=== PATIENT | female | born 1985 | race Caucasian/White ===

== ENCOUNTER 2016-10-24 21:36 | Emergency (ER) | payer OTHER ==
[2016-10-24 22:06] VITALS: RESP 16
--- NOTE | 2016-10-25 01:09 | ED ---
General Adult HPI - General Chief complaint: Overdose Stated complaint: overdose Time Seen by Provider: 10/24/16 21:56 Source: patient, EMS Mode of arrival: EMS - History of Present Illness Initial comments: Patient presents via EMS for heroin overdose. Patient was found by her family unresponsive with a needle in her arm this afternoon. EMS was called, patient did not require any Narcan, and said she woke to physical stimulation. In the emergency department, patient states that she is sorry for what she did, she states that she is not suicidal or homicidal at this time. Patient is tearful and feels "stupid" patient states that she has a history of heroin abuse but she has been clean for one year. She states that she was given heroin by a friend of hers and use it today because there is a lot of stress in her life. Patient has no other complaints at this time. - Related Data Home Medications Medication Instructions Recorded Confirmed Gabapentin [Neurontin] 300 mg PO TID 08/16/15 10/24/16 Hydrocodone/Acetaminophen [[place] 1 tab PO TID 08/16/15 10/24/16 10-325] Albuterol Sulfate [Proair Hfa] 1 - 2 puff PO RT-Q6H PRN 10/24/16 10/24/16 tiZANidine HCL [Zanaflex] 4 mg PO HS PRN 10/24/16 10/24/16 Allergies Allergy/AdvReac Type Severity Reaction Status Date / Time tramadol Allergy Chest Pain Verified 10/24/16 22:30 Review of Systems ROS Statement: Those systems with pertinent positive or pertinent negative responses have been documented in the HPI. ROS Other: All systems not noted in ROS Statement are negative. Constitutional: Denies: fever, chills Eyes: Denies: vision change ENT: Denies: ear pain, throat pain Respiratory: Denies: cough, dyspnea Cardiovascular: Denies: chest pain, palpitations Endocrine: Denies: fatigue Gastrointestinal: Denies: abdominal pain, nausea Genitourinary: Denies: dysuria Musculoskeletal: Reports: back pain (Chronic) Skin: Denies: lesions Neurological: Denies: headache Psychiatric: Reports: anxiety. Denies: depression Past Medical History Past Medical History: Fibromyalgia Additional Past Medical History / Comment(s): chronic back pain History of Any Multi-Drug Resistant Organisms: MRSA Date of last positivie culture/infection: 2011/ unk infection rt hand Additional Past Surgical History / Comment(s): rt hand surgery Past Psychological History: Anxiety Smoking Status: Current every day smoker Past Alcohol Use History: Occasional Past Drug Use History: Heroin General Exam - General Exam Comments Initial Comments: On initial evaluation, patient is generally awake and alert, she is in no respiratory distress. Patient is tearful and sore for for what she did. Limitations: no limitations General appearance: alert, in no apparent distress, anxious Head exam: Present: atraumatic, normocephalic Eye exam: Present: normal appearance, PERRL ENT exam: Present: normal exam, normal oropharynx, mucous membranes moist Neck exam: Present: normal inspection Respiratory exam: Present: normal lung sounds bilaterally. Absent: respiratory distress, wheezes, accessory muscle use, decreased breath sounds Cardiovascular Exam: Present: normal rhythm, tachycardia, normal heart sounds GI/Abdominal exam: Present: soft, distended. Absent: tenderness Rectal exam: Present: deferred Extremities exam: Present: other (Patient had one injection lemos in her left before meals. The rest of her skin does not show any abnormality) Back exam: Present: normal inspection Neurological exam: Present: alert, oriented X3, CN II-XII intact, normal gait, motor sensory deficit. Absent: altered Psychiatric exam: Present: normal affect, normal mood Skin exam: Present: warm, dry, intact Course Vital Signs 10/24/16 21:54 Temperature 98.8 F Pulse Rate 98 Respiratory 16 Rate Blood Pressure 135/73 O2 Sat by Pulse 98 Oximetry Medical Decision Making - Medical Decision Making Patient presents with a chief complaint heroin ingestion. She was found by her family unresponsive, when EMS arrived they were able to wake her with physical stimuli. Patient did not require any Narcan. Patient is remorseful for what she did. She states several times she is not suicidal or homicidal. Patient states that she is under a lot of stress, and has a history of drug use. She states that she does not want to use any more. Patient was observed for a period of 3-1/2 hours in the emergency department. Over that time she did not require any doses of Narcan, she is daily alert. Family currently at bedside. Patient will be supplied with resources for outpatient help with substance abuse. At this time, patient again states she is not suicidal, she is stable for discharge home. She will leave with her mother and cousin. Disposition Clinical Impression: Heroin abuse Disposition: HOME SELF-CARE Condition: Good Instructions: Narcotic Abuse (ED) Referrals: Charlie Perry MD [Primary Care Provider] - 1-2 days
[2016-10-25 01:32] VITALS: BP 123/60; PULSE 97; TEMP 99.5
== END 2016-10-25 01:31 | disposition home or self-care (01) ==
LOC: EC 21:36
DX: F11.10 Opioid abuse, uncomplicated (principal); R00.0 Tachycardia, unspecified; M79.7 Fibromyalgia; F41.9 Anxiety disorder, unspecified; F17.200 Nicotine dependence, unspecified, uncomplicated; Z79.891 Long term (current) use of opiate analgesic; Z79.899 Other long term (current) drug therapy; Z88.5 Allergy status to narcotic agent
CPT/HCPCS: 99284

== ENCOUNTER 2017-05-25 04:30 | Emergency (ER) | payer OTHER ==
--- NOTE | 2017-05-25 06:02 | ED ---
General Adult HPI - General Chief complaint: Overdose Stated complaint: Overdose Time Seen by Provider: 05/25/17 04:51 Source: patient, EMS, RN notes reviewed, old records reviewed Mode of arrival: EMS Limitations: no limitations - History of Present Illness Initial comments: This is a 29-year-old female ER for evaluation of heroin overdose. Patient does have history of heroin abuse, patient does admit to using heroin tonight. Patient was found down, upon EMS arrival patient was in breathing appropriately but she was agonal, patient was given EMS in the field did show good response. On arrival to ER patient has no complaints although embarrassment tenderness and anxiety over symptoms recent use of drugs - Related Data Home Medications Medication Instructions Recorded Confirmed Gabapentin [Neurontin] 300 mg PO TID 08/16/15 10/24/16 Hydrocodone/Acetaminophen [[place] 1 tab PO TID 08/16/15 10/24/16 10-325] Albuterol Sulfate [Proair Hfa] 1 - 2 puff PO RT-Q6H PRN 10/24/16 10/24/16 tiZANidine HCL [Zanaflex] 4 mg PO HS PRN 10/24/16 10/24/16 Allergies Allergy/AdvReac Type Severity Reaction Status Date / Time tramadol Allergy Chest Pain Verified 10/24/16 22:30 Review of Systems ROS Statement: Those systems with pertinent positive or pertinent negative responses have been documented in the HPI. ROS Other: All systems not noted in ROS Statement are negative. Past Medical History Past Medical History: Fibromyalgia Additional Past Medical History / Comment(s): chronic back pain History of Any Multi-Drug Resistant Organisms: MRSA Date of last positivie culture/infection: un infection rt hand Past Surgical History: Orthopedic Surgery Additional Past Surgical History / Comment(s): rt hand surgery Past Psychological History: Anxiety Smoking Status: Current every day smoker Past Alcohol Use History: Occasional Past Drug Use History: Heroin General Exam Limitations: no limitations Course Vital Signs 05/25/17 04:34 Temperature 97.3 F L Pulse Rate 104 H Respiratory 18 Rate Blood Pressure 110/63 O2 Sat by Pulse 100 Oximetry - Reevaluation(s) Reevaluation #1: 05/25/17 06:32 Patient is without acute disease Medical Decision Making - Medical Decision Making 29 female the ER with heroin overdose, improvement with Narcan. Patient denies any other drugs rel call. Patient will be discharged home Disposition Clinical Impression: Poisoning by opiate or related narcotic Disposition: HOME SELF-CARE Condition: Good Referrals: None,Stated [Primary Care Provider] - 1-2 days
[2017-05-25 07:27] VITALS: BP 91/47; PULSE 62; RESP 14; TEMP 97.7
== END 2017-05-25 07:27 | disposition home or self-care (01) ==
LOC: EC 04:30
DX: T40.1X1A Poisoning by heroin, accidental (unintentional), initial encounter (principal); M79.7 Fibromyalgia; F41.9 Anxiety disorder, unspecified; F17.200 Nicotine dependence, unspecified, uncomplicated; Z86.14 Personal history of Methicillin resistant Staphylococcus aureus infection; Z79.899 Other long term (current) drug therapy; Z88.6 Allergy status to analgesic agent
CPT/HCPCS: 99284

== ENCOUNTER 2017-11-25 14:21 | Inpatient (IN) | payer OTHER ==
[2017-11-25] MEDS ORDERED: SODIUM CHLORIDE 0.9% 1,000 ML IV STA ×2 (15:10→16:26)
--- NOTE | 2017-11-25 15:23 | ED ---
General Adult HPI <Leonard Velez - Last Filed: 11/25/17 16:29> - General Source: patient, EMS, RN notes reviewed Mode of arrival: EMS Limitations: no limitations <Scott Desouza - Last Filed: 11/25/17 17:00> - General Chief complaint: Extremity Problem,Nontraumatic Stated complaint: lt arm pain Time Seen by Provider: 11/25/17 14:32 - History of Present Illness Initial comments: 32-year-old female presents to the emergency department for a chief complaint of left arm pain 4 days. Patient admits to injecting heroin in the left arm 1.5 weeks ago. She denies any drug use since that time. Patient denies fevers or chills at home but states she does feel like she has warm. Patient states it is painful to move her left elbow. Patient denies pain in the hand. She also states that she has been more tired feeling for the past 4 days. Patient has no other complaints at this time including shortness of breath, chest pain, abdominal pain, nausea or vomiting, headache, or visual changes. (Scott Desouza) - Related Data Home Medications Medication Instructions Recorded Confirmed No Known Home Medications 11/25/17 11/25/17 Allergies Allergy/AdvReac Type Severity Reaction Status Date / Time tramadol Allergy Chest Pain Verified 11/25/17 15:46 Review of Systems ROS Other: All systems not noted in ROS Statement are negative. <Leonard Velez - Last Filed: 11/25/17 16:29> ROS Other: All systems not noted in ROS Statement are negative. <Scott Desouza - Last Filed: 11/25/17 17:00> ROS Statement: Those systems with pertinent positive or pertinent negative responses have been documented in the HPI. Past Medical History Past Medical History: Fibromyalgia Additional Past Medical History / Comment(s): chronic back pain History of Any Multi-Drug Resistant Organisms: MRSA Date of last positivie culture/infection: 2010/ unk infection rt hand Past Surgical History: Orthopedic Surgery Additional Past Surgical History / Comment(s): rt hand surgery Past Psychological History: Anxiety Smoking Status: Current every day smoker Past Alcohol Use History: Occasional Past Drug Use History: Heroin <Scott Desouza - Last Filed: 11/25/17 17:00> General Exam Limitations: no limitations General appearance: alert, in no apparent distress Head exam: Present: atraumatic, normocephalic, normal inspection Eye exam: Present: normal appearance, PERRL, EOMI. Absent: scleral icterus, conjunctival injection, periorbital swelling, periorbital tenderness ENT exam: Present: normal exam, mucous membranes moist Neck exam: Present: normal inspection, full ROM. Absent: tenderness, meningismus, lymphadenopathy Respiratory exam: Present: normal lung sounds bilaterally. Absent: respiratory distress, wheezes, rales, rhonchi, stridor Cardiovascular Exam: Present: regular rate, normal rhythm, normal heart sounds. Absent: systolic murmur, diastolic murmur, rubs, gallop, clicks GI/Abdominal exam: Present: soft, normal bowel sounds. Absent: distended, tenderness, guarding, rebound, rigid Extremities exam: Present: tenderness (Mild tenderness noted over the left forearm. No tenderness noted in the left elbow or left hand), normal capillary refill (Capillary refill less than 2 seconds and radial pulse 2+ in the left upper extremity), other (Induration of the left forearm without significant erythema. No visible foreign bodies noted. No abscess noted. No streaking redness or spreading redness. No cellulitic changes.). Absent: full ROM ( Patient has full flexion with about 90 extension of the left elbow.) Neurological exam: Present: alert, oriented X3, CN II-XII intact Psychiatric exam: Present: normal affect, normal mood <Scott Desouza P - Last Filed: 11/25/17 17:00> Vital Signs 11/25/17 14:33 Temperature 98.7 F Pulse Rate 97 Respiratory 16 Rate Blood Pressure 95/60 O2 Sat by Pulse 97 Oximetry Medical Decision Making - Lab Data Result diagrams: 11/25/17 13:50 11/25/17 13:50 <Leonard Velez - Last Filed: 11/25/17 16:29> - Lab Data Result diagrams: 11/25/17 13:50 11/25/17 13:50 <Scott Desouza - Last Filed: 11/25/17 17:00> - Medical Decision Making Decision making; this is a 31-year-old female who reports approximately 2 weeks ago she used a needle to inject heroin into her left forearm. The pain and swelling and redness is on the proximal forearm. Patient reports she last used 2 weeks ago. X-ray of the forearm including part of the elbow area shows what appears to be due to retained metallic foreign bodies. She states that she had a serious infection in that general area years ago. Patient's white count is 12 ,000. Pulse slightly over 90. Patient states that she was sweaty this morning when she awakened. The patient be treated for sepsis. Started on vancomycin and Rocephin. Patient be admitted to the hospitalist. With orthopedic consultation. Dr. Frias notified. Dr. Velez I interviewed the patient and discussed the situation with the patient and the PA and agreed to the findings included. Including all diagnostic interpretation and treatment plan. Dr. Velez (Leonard Velez) 32-year-old with a past medical history of IV drug abuse and MRSA presents to the emergency department with left forearm swelling. Neurovascular intact in left upper extremity. Patient does have a pulse of 97 and a blood pressure 95/ 60. Patient is afebrile. CBC shows a white count of 12.9 with a left shift. Patient meets sepsis criteria. Lactic 1.1. CMP within normal limits. AST and ALT mildly elevated, but decreased from last blood work 2 years ago. Urinalysis did show positive nitrites and moderate leukocyte esterase with 37 white cells, urine cultured, patient started on Rocephin. X-ray of the left forearm shows [id number] diffuse subcutaneous edema. There are linear foreign bodies at level of cubital fossa measuring 5-6 mm in size each. Patient likely has a cellulitis of the left forearm due to IV drug abuse. Past history of MRSA. Patient started on vancomycin and given 2 L of fluids. Blood cultured before antibiotics given. Patient will be admitted to Dr. Frias and orthopedics will be consulted. She will be continued on vancomycin and Rocephin. (Scott Desouza) - Lab Data Lab Results 11/25/17 11/25/17 11/25/17 Range/Units 13:50 13:50 13:50 WBC 12.9 H (3.8-10.6) k/uL RBC 4.53 (3.80-5.40) m/uL Hgb 13.3 (11.4-16.0) gm/dL Hct 41.4 (34.0-46.0) % MCV 91.3 (80.0-100.0) fL MCH 29.3 (25.0-35.0) pg MCHC 32.1 (31.0-37.0) g/dL RDW 13.4 (11.5-15.5) % Plt Count 312 (150-450) k/uL Neutrophils % 81 % Lymphocytes % 11 % Monocytes % 5 % Eosinophils % 2 % Basophils % 0 % Neutrophils # 10.4 H (1.3-7.7) k/uL Lymphocytes # 1.4 (1.0-4.8) k/uL Monocytes # 0.6 (0-1.0) k/uL Eosinophils # 0.3 (0-0.7) k/uL Basophils # 0.0 (0-0.2) k/uL Sodium 137 (137-145) mmol/L Potassium 4.5 (3.5-5.1) mmol/L Chloride 103 (98-107) mmol/L Carbon Dioxide 28 (22-30) mmol/L Anion Gap 6 mmol/L BUN 13 (7-17) mg/dL Creatinine 0.60 (0.52-1.04) mg/dL Est GFR (CKD-EPI)AfAm >90 (>60 ml/min/1.73 sqM) Est GFR (CKD-EPI)NonAf >90 (>60 ml/min/1.73 sqM) Glucose 121 H (74-99) mg/dL Plasma Lactic Acid Av 1.1 (0.7-2.0) mmol/L Calcium 9.1 (8.4-10.2) mg/dL Total Bilirubin 0.5 (0.2-1.3) mg/dL AST 48 H (14-36) U/L ALT 63 H (9-52) U/L Alkaline Phosphatase 81 (38-126) U/L Total Protein 7.4 (6.3-8.2) g/dL Albumin 3.8 (3.5-5.0) g/dL Urine Color Urine Appearance (Clear) Urine pH (5.0-8.0) Ur Specific [place] (1.001-1.035) Urine Protein (Negative) Urine Glucose (UA) (Negative) Urine Ketones (Negative) Urine Blood (Negative) Urine Nitrite (Negative) Urine Bilirubin (Negative) Urine Urobilinogen (<2.0) mg/dL Ur Leukocyte Esterase (Negative) Urine RBC (0-5) /hpf Urine WBC (0-5) /hpf Ur Squamous Epith Cells (0-4) /hpf Urine Bacteria (None) /hpf Urine Mucus (None) /hpf 11/25/17 Range/Units 13:50 WBC (3.8-10.6) k/uL RBC (3.80-5.40) m/uL Hgb (11.4-16.0) gm/dL Hct (34.0-46.0) % MCV (80.0-100.0) fL MCH (25.0-35.0) pg MCHC (31.0-37.0) g/dL RDW (11.5-15.5) % Plt Count (150-450) k/uL Neutrophils % % Lymphocytes % % Monocytes % % Eosinophils % % Basophils % % Neutrophils # (1.3-7.7) k/uL Lymphocytes # (1.0-4.8) k/uL Monocytes # (0-1.0) k/uL Eosinophils # (0-0.7) k/uL Basophils # (0-0.2) k/uL Sodium (137-145) mmol/L Potassium (3.5-5.1) mmol/L Chloride (98-107) mmol/L Carbon Dioxide (22-30) mmol/L Anion Gap mmol/L BUN (7-17) mg/dL Creatinine (0.52-1.04) mg/dL Est GFR (CKD-EPI)AfAm (>60 ml/min/1.73 sqM) Est GFR (CKD-EPI)NonAf (>60 ml/min/1.73 sqM) Glucose (74-99) mg/dL Plasma Lactic Acid Av (0.7-2.0) mmol/L Calcium (8.4-10.2) mg/dL Total Bilirubin (0.2-1.3) mg/dL AST (14-36) U/L ALT (9-52) U/L Alkaline Phosphatase (38-126) U/L Total Protein (6.3-8.2) g/dL Albumin (3.5-5.0) g/dL Urine Color Yellow Urine Appearance Cloudy H (Clear) Urine pH 6.5 (5.0-8.0) Ur Specific [place] 1.021 (1.001-1.035) Urine Protein 1+ H (Negative) Urine Glucose (UA) Negative (Negative) Urine Ketones Negative (Negative) Urine Blood Negative (Negative) Urine Nitrite Positive H (Negative) Urine Bilirubin Negative (Negative) Urine Urobilinogen <2.0 (<2.0) mg/dL Ur Leukocyte Esterase Moderate H (Negative) Urine RBC 2 (0-5) /hpf Urine WBC 37 H (0-5) /hpf Ur Squamous Epith Cells 5 H (0-4) /hpf Urine Bacteria Occasional H (None) /hpf Urine Mucus Many H (None) /hpf Disposition <Leonard Velez - Last Filed: 11/25/17 16:29> Is patient prescribed a controlled substance at d/c from ED?: No Time of Disposition: 16:59 <Scott Desouza - Last Filed: 11/25/17 17:00> Clinical Impression: Foreign body (FB) in soft tissue, Cellulitis of arm, left, IV drug abuse Disposition: ADMITTED IP TO THIS HOSP Condition: Good Referrals: None,Stated [Primary Care Provider] - 1-2 days
[2017-11-25 16:03] LABS: Basophils % (A) 0 %; Eosinophils # (A) 0.3 k/uL (0-0.7); Eosinophils % (A) 2 %; HCT 41.4 % (34.0-46.0); HGB 13.3 gm/dL (11.4-16.0); Lymphocytes # (A) 1.4 k/uL (1.0-4.8); Lymphocytes % (A) 11 %; MCH 29.3 pg (25.0-35.0); MCHC 32.1 g/dL (31.0-37.0); MCV 91.3 fL (80.0-100.0); Mean Platelet Volume 6.8; Monocytes # (A) 0.6 k/uL (0-1.0); Monocytes % (A) 5 %; Neutrophils # (A) 10.4 k/uL (1.3-7.7); Neutrophils % (A) 81 %; Platelet Count 312 k/uL (150-450); RBC 4.53 m/uL (3.80-5.40); RDW 13.4 % (11.5-15.5); WBC 12.9 k/uL (3.8-10.6)
[2017-11-25 16:09] LABS: Appearance,Urine Cloudy (Clear); Bacteria,Urine Occasional /hpf; Bilirubin,Urine Negative (Negative); Blood,Urine Negative (Negative); Color,Urine Yellow; Glucose,Urine (UA) Negative (Negative); Ketones,Urine Negative (Negative); Leukocyte Esterase,Urine Moderate (Negative); Mucus,Urine Many /hpf; Nitrite,Urine Positive (Negative); PH, Urine 6.5 (5.0-8.0); Protein,Urine 1+ (Negative); RBC,Urine 2 /hpf (0-5); Specific Gravity,Urine 1.021 (1.001-1.035); Squamous Epithelial Cell,Urine 5 /hpf (0-4); Urobilinogen,Urine <2.0 mg/dL (<2.0); WBC,Urine 37 /hpf (0-5)
[2017-11-25 16:18] LABS: ALT 63 U/L (9-52); AST 48 U/L (14-36); Albumin 3.8 g/dL (3.5-5.0); Alkaline Phosphatase 81 U/L (38-126); Anion Gap 6 mmol/L; Blood Urea Nitrogen 13 mg/dL (7-17); Calcium 9.1 mg/dL (8.4-10.2); Carbon Dioxide 28 mmol/L (22-30); Chloride 103 mmol/L (98-107); Glucose 121 mg/dL (74-99); Potassium 4.5 mmol/L (3.5-5.1); Sodium 137 mmol/L (137-145); Total Bilirubin 0.5 mg/dL (0.2-1.3); Total Protein 7.4 g/dL (6.3-8.2)
--- NOTE | 2017-11-25 16:22 | XR ---
EXAMINATION TYPE: XR forearm LT DATE OF EXAM: 11/25/2017 CLINICAL HISTORY: Pain and swelling TECHNIQUE: Two views of the left forearm are obtained. COMPARISON: None. FINDINGS: There is no acute fracture or dislocation seen in the left radius or ulna. The left elbow and wrist joints appear within normal limits. There is mild to moderate diffuse subcutaneous edema, there are to linear foreign bodies at level of cubital fossa measuring 5 to 6 mm in size each. IMPRESSION: There are 2 linear soft tissue foreign bodies or fractured needles in the cubital fossa.
[2017-11-25] MEDS ORDERED: VANCOMYCIN IV PER PHARMACY 1 EACH MISC MISCELLANE PRN (16:25)
[2017-11-25] MEDS ORDERED: cefTRIAXone IN SWFI 1,000 MG/10 ML SYRINGE IVP STA (16:27)
[2017-11-25] MEDS ORDERED: TEMAZEPAM 15 MG CAP PO PRN (16:52)
[2017-11-25] MEDS ORDERED: NALOXONE 0.4 MG/ML 1 ML VIAL IV PRN (17:00)
[2017-11-25] MEDS ORDERED: ONDANSETRON 4 MG/2 ML VIAL IVP PRN (17:00)
[2017-11-25] MEDS ORDERED: VANCOMYCIN 1,250 MG in SODIUM CHLORIDE 0.9% 250 ML IVPB ONE (17:00)
--- NOTE | 2017-11-25 17:26 | HP ---
HISTORY AND PHYSICAL CHIEF COMPLAINT: Pain and swelling of the left hand. HISTORY OF PRESENT ILLNESS: This 32-year-old woman with a past medical history of fibromyalgia, chronic back pain, history of MRSA, anxiety, history of substance abuse, polysubstance abuse was apparently clean, but the patient took heroin about 2 weeks ago in the left arm. The patient is complaining of pain and swelling of the left arm for the last 4 days which was increasing in which the patient unable to move the arm also, and the forearm also. The patient came to [facility] and was admitted for further evaluation and treatment. X-ray showed two lenient soft tissue foreign bodies of fractured decubital fossa. Orthopedic surgery is consulted. There is no history of fever, rigors. No history of headache, loss of consciousness, seizures. PAST MEDICAL HISTORY: History of fibromyalgia, chronic back pain, MRSA, anxiety. MEDICATIONS: Prior to admission include home medications are none. ALLERGIES: ULTRAM. FAMILY HISTORY: No history of heart disease or strokes in the family. SOCIAL HISTORY: History of smoking, substance abuse, alcohol. REVIEW OF SYSTEMS: ENT: No diminished vision. No diminished hearing. CARDIOVASCULAR: No angina or palpitations. RESPIRATORY: No cough or hemoptysis. GI: No nausea or vomiting. : No dysuria. No hematuria. NERVOUS SYSTEM: No numbness or weakness. ALLERGY/IMMUNOLOGY: No asthma or hayfever. MUSCULOSKELETAL as mentioned earlier. HEMATOLOGY/ONCOLOGY: No history of anemia. ENDOCRINE: No history of diabetes or hypothyroidism. CONSTITUTIONAL: As mentioned earlier. Dermatology: Negative. Rheumatology: Negative. Psychiatry: As mentioned earlier. PHYSICAL EXAM: GENERAL: The patient is alert and oriented times three. Pulse is 97, blood pressure 95/60, respirations 16, temperature is 98.7, pulse ox 97% on room air. HEENT: Conjunctivae normal. Oral mucosa moist. NECK is no jugular venous distention. No carotid bruit. No lymph node enlargement. CARDIOVASCULAR SYSTEMS: S1, S2 muffled. RESPIRATION: Breath sounds diminished in the bases. No rhonchi. No crackles. ABDOMEN: Soft, nontender. No mass palpable. LEGS: No edema and no swelling. NERVOUS SYSTEM: Higher functions as mentioned earlier. Moves all four extremities. No focal deficits. Lymphatics: No lymph nodes palpable in the neck, axillae or groin. SKIN: No ulcer, rash, bleeding. But however the left arm is significantly tender and swollen especially the forearm. The movement of the elbow is significantly painful. JOINTS: As mentioned earlier. LAB STUDIES: WBC 4.8, hemoglobin 13.3, AST is 48 and ALT is 63. UA noted. ASSESSMENT: 1. Acute pain and swelling of the left arm, possibly left arm cellulitis. 2. Rule out left elbow arthritis. 3. Status post IV drug abuse and foreign bodies in the left antecubital fossa. 4. Urinary tract infection. 5. Increased AST, ALT, hepatitis possibly. 6. Increase random blood sugar. 7. Increased WBC. 8. Fibromyalgia. 9. Chronic back pain. 10.History of MRSA. 11.History of anxiety. 12.History of nicotine dependence. 13.History of polysubstance abuse including heroin. RECOMMENDATIONS AND DISCUSSION: In this 32-year-old woman who presented with multiple complex medical issues, we will monitor the patient closely. Continue the current medications, management and symptomatic treatment. Otherwise, we will initiate broad-spectrum IV antibiotics, vancomycin and Zosyn. Recommend orthopedic consultation. Pain medications. DVT prophylaxis. Overall prognosis guarded because of multiple complex medical issues. Further recommendations to follow. Recommend social work and case Management consultation as well as substance abuse counseling and possibly outpatient rehab also. Prognosis guarded because of multiple complex medical issues. Further recommendations to follow. Currently the patient is not being seen by any primary physician in the outpatient setting. MMODL / IJN: [id number] / MTDD
--- NOTE | 2017-11-25 19:21 | CT ---
EXAMINATION TYPE: CT upper extremity LT wo con DATE OF EXAM: 11/25/2017 COMPARISON: Radiographs 11/25/2017 at 4:13 PM HISTORY: unable to to straighten arm at elbow CT DLP: 422.4 mGycm TECHNIQUE: Automated exposure control for dose reduction was used. Axial and sagittal and coronal seq uences were obtained. Soft tissue and bone reconstruction renderings obtained. FINDINGS: SKELETAL STRUCTURES: Negative for fracture or malalignment or focal skeletal lesion. JOINTS: Unremarkable. SOFT TISSUES: The 2 previously noted linear foreign bodies in the anterior cubital fossa redemonstra zane, measuring 5 to 6 mm in length and submillimeter in caliber. These are longitudinally oriented an d have similar appearance and location when compared to the radiographs. There is circumferential mild-moderate subcutaneous edematous changes, and there is also indistinctne ss of the underlying musculature -extending from the mid arm contiguously to the mid forearm. However , there is no focal fluid collection and no soft tissue emphysema. No other radiopaque foreign body. IMPRESSION: SOFT TISSUE FINDINGS.
[2017-11-25] MEDS: KETOROLAC 30 MG/ML 1 ML VIAL IVP PRN (19:47)
[2017-11-25] MEDS: PIPERACILLIN-TAZOBACTAM 3.375 GM in DEXTROSE/WATER 1 50ML.BAG IVPB SCH (19:48)
[2017-11-25] MEDS: SODIUM CHLORIDE 0.9% 1,000 ML IV SCH (19:48)
[2017-11-25] MEDS: HEPARIN SODIUM,PORCINE 5,000 UNIT/ML 1 ML VIAL SQ SCH (19:49)
[2017-11-25] MEDS: NICOTINE 14MG/24HR PATCH TRANSDERM SCH (19:49)
[2017-11-25] MEDS: LORazepam 0.5 MG TAB PO PRN (19:51)
[2017-11-25] MEDS: VANCOMYCIN 1,000 MG in SODIUM CHLORIDE 0.9% 250 ML IVPB SCH (23:56)
[2017-11-26] MEDS: PIPERACILLIN-TAZOBACTAM 3.375 GM in DEXTROSE/WATER 1 50ML.BAG IVPB SCH ×3 (02:33→17:52)
[2017-11-26] MEDS: KETOROLAC 30 MG/ML 1 ML VIAL IVP PRN ×3 (02:40→21:14)
[2017-11-26] MEDS: SODIUM CHLORIDE 0.9% 1,000 ML IV SCH ×3 (05:02→16:36)
[2017-11-26] MEDS: VANCOMYCIN 1,000 MG in SODIUM CHLORIDE 0.9% 250 ML IVPB SCH ×2 (07:32→16:35)
[2017-11-26] MEDS: PANTOPRAZOLE 40 MG TABLET PO SCH (07:33)
[2017-11-26 08:21] LABS: Basophils % (A) 0 %; Eosinophils # (A) 0.2 k/uL (0-0.7); Eosinophils % (A) 2 %; HCT 38.5 % (34.0-46.0); HGB 12.1 gm/dL (11.4-16.0); Lymphocytes # (A) 1.6 k/uL (1.0-4.8); Lymphocytes % (A) 14 %; MCH 29.7 pg (25.0-35.0); MCHC 31.4 g/dL (31.0-37.0); MCV 94.5 fL (80.0-100.0); Mean Platelet Volume 6.7; Monocytes # (A) 0.8 k/uL (0-1.0); Monocytes % (A) 7 %; Neutrophils # (A) 8.5 k/uL (1.3-7.7); Neutrophils % (A) 75 %; Platelet Count 269 k/uL (150-450); RBC 4.08 m/uL (3.80-5.40); RDW 13.4 % (11.5-15.5); WBC 11.2 k/uL (3.8-10.6)
--- NOTE | 2017-11-26 08:28 | P.CNOR ---
History of Present Illness - HPI Consult date: 11/26/17 History of present illness: This is a 32 year-old female who is admitted for left arm pain. Patient admits to a history of IV drug abuse. Patient states that she noticed the swelling in her left arm over the last few days. Patient states that she cannot straighten her left arm due to the pain. Patient states that the pain started after cleaning out her van. Patient denies any numbness, weakness, tingling, drainage , fever/chills. Review of Systems See HPI. Past Medical History Past Medical History: Asthma, Fibromyalgia, Pneumonia Additional Past Medical History / Comment(s): chronic back pain, asthma as child , pne age 1, past uti-ecoli, seizure x 1 few years ago pt stated "they thought it may be due to dehydration", anxiety History of Any Multi-Drug Resistant Organisms: MRSA Year Discovered:: 2010/ unk infection rt hand MDRO Source:: rt hand Past Surgical History: Orthopedic Surgery Additional Past Surgical History / Comment(s): rt hand surgery d/t infection Past Anesthesia/Blood Transfusion Reactions: No Reported Reaction Smoking Status: Current every day smoker - Past Family History Mother Family Medical History: CVA/TIA, Hypertension Additional Family Medical History / Comment(s): loop recorder /ep study Father Family Medical History: Hypertension Additional Family Medical History / Comment(s): aaa(sx) Medications and Allergies Home Medications Medication Instructions Recorded Confirmed Type No Known Home Medications 11/25/17 11/25/17 History Allergies Allergy/AdvReac Type Severity Reaction Status Date / Time tramadol Allergy Chest Pain Verified 11/25/17 15:46 Physical Examination On exam patient is resting comfortably in bed in no acute distress. There is mild swelling over the volar aspect of the left proximal forearm. There is faint erythema. There is no fluctuance. This area is tender to palpation. Patient has limitation with range of motion of the left elbow due to pain. There are small abrasions in the area of the left elbow and forearm. There is no drainage. Sensation is intact. Neurovascular status circulatory status are intact. Results A CT of the left upper extremity shows two foreign bodies in the left elbow. There is no focal fluid collection. - Labs Labs: Abnormal Lab Results - Last 24 Hours (Table) 11/25/17 11/25/17 11/25/17 Range/Units 13:50 13:50 13:50 WBC 12.9 H (3.8-10.6) k/uL Neutrophils # 10.4 H (1.3-7.7) k/uL Glucose 121 H (74-99) mg/dL AST 48 H (14-36) U/L ALT 63 H (9-52) U/L C-Reactive Protein (<10.0) mg/L Urine Appearance Cloudy H (Clear) Urine Protein 1+ H (Negative) Urine Nitrite Positive H (Negative) Ur Leukocyte Esterase Moderate H (Negative) Urine WBC 37 H (0-5) /hpf Ur Squamous Epith Cells 5 H (0-4) /hpf Urine Bacteria Occasional H (None) /hpf Urine Mucus Many H (None) /hpf 11/25/17 Range/Units 13:50 WBC (3.8-10.6) k/uL Neutrophils # (1.3-7.7) k/uL Glucose (74-99) mg/dL AST (14-36) U/L ALT (9-52) U/L C-Reactive Protein 139.2 H (<10.0) mg/L Urine Appearance (Clear) Urine Protein (Negative) Urine Nitrite (Negative) Ur Leukocyte Esterase (Negative) Urine WBC (0-5) /hpf Ur Squamous Epith Cells (0-4) /hpf Urine Bacteria (None) /hpf Urine Mucus (None) /hpf Microbiology - Last 24 Hours (Table) 11/25/17 13:50 Urine Culture - Preliminary Urine,Voided H & H 11/25/17 Range/Units 13:50 Hgb 13.3 (11.4-16.0) gm/dL Hct 41.4 (34.0-46.0) % Result Diagrams: 11/25/17 13:50 11/25/17 13:50 Assessment and Plan (1) Cellulitis of left forearm Current Visit: Yes Status: Acute Code(s): L03.114 - CELLULITIS OF LEFT UPPER LIMB SNOMED Code(s): 21866344 (2) Foreign body (FB) in soft tissue Current Visit: Yes Status: Acute Code(s): M79.5 - RESIDUAL FOREIGN BODY IN SOFT TISSUE SNOMED Code(s): 657801208 (3) IV drug abuse Current Visit: Yes Status: Acute Code(s): F19.10 - OTHER PSYCHOACTIVE SUBSTANCE ABUSE, UNCOMPLICATED SNOMED Code(s): 704460297 Plan: 1. Recommend warm compresses to the left forearm. 2. Continue IV antibiotics. 3. Recommend vascular consult for retained needles. 4. No surgical intervention planned.
[2017-11-26] MEDS: LORazepam 0.5 MG TAB PO PRN ×3 (08:32→21:15)
[2017-11-26] MEDS: ACETAMINOPHEN TAB 500 MG TAB PO PRN ×2 (08:33→21:14)
[2017-11-26 08:39] LABS: Anion Gap 6 mmol/L; Blood Urea Nitrogen 6 mg/dL (7-17); Calcium 8.3 mg/dL (8.4-10.2); Carbon Dioxide 25 mmol/L (22-30); Chloride 109 mmol/L (98-107); Glucose 93 mg/dL (74-99); Potassium 4.4 mmol/L (3.5-5.1); Sodium 140 mmol/L (137-145)
[2017-11-26] MEDS: NICOTINE 14MG/24HR PATCH TRANSDERM SCH (10:10)
[2017-11-26] MEDS: HEPARIN SODIUM,PORCINE 5,000 UNIT/ML 1 ML VIAL SQ SCH ×2 (10:11→21:14)
[2017-11-26] MEDS ORDERED: VANCOMYCIN TROUGH DUE 1 EACH MISC MISCELLANE ONE (15:00)
--- NOTE | 2017-11-26 17:04 | PN ---
PROGRESS NOTE DATE OF SERVICE: 11/26/2017 This 32-year-old woman was admitted with pain and swelling of the left hand. She has possible acute cellulitis also. The CT scan of the upper extremity did not show any evidence of any abscess or myositis. Orthopedics has seen the patient and recommended vascular surgery evaluation for the foreign body near the elbow. IV antibiotics have been initiated. No chest pain. No palpitations. No fever. On exam, alert and oriented x3. Pulse is 85, blood pressure 109/63, respiration 16, temperature 98.7, pulse ox 98% on room air. HEENT: Conjunctivae normal. Oral mucosa moist. NECK: No jugular venous distention. No carotid bruit. No lymph node enlargement. CARDIOVASCULAR SYSTEM: S1, S2 muffled. RESPIRATORY SYSTEM: Breath sounds diminished at the bases. No rhonchi. No crackles. ABDOMEN: Soft, non-tender. ARMS: Left pain and swelling present. NERVOUS SYSTEM: No focal deficit. LABS: WBC 11.2, hemoglobin 12.1, sodium 140, potassium 4.4. ASSESSMENT: 1. Acute pain and swelling of the left arm with possible left arm cellulitis with possible sepsis. 2. Rule out left elbow arthritis. 3. Status post IV drug abuse and foreign bodies in the left antecubital fossa. 4. Urinary tract infection. 5. Increased AST, ALT; hepatitis possibly. 6. Increased random blood sugar. 7. Increased white count. 8. Fibromyalgia. 9. Chronic back pain. 10.History of methicillin-resistant Staphylococcus aureus. 11.History of anxiety. 12.History of nicotine dependence. 13.History of polysubstance abuse, including heroin. RECOMMENDATIONS AND DISCUSSION: I recommend to continue current medication, continue with the monitoring, continue symptomatic treatment. Continue with IV antibiotics. Closely follow with multiple consultants. Guarded prognosis. Further recommendations to follow. MMODL / IJN: [id number] / STORMY
--- NOTE | 2017-11-26 19:49 | CONS ---
CONSULTATION DATE OF SERVICE: 11/26/2017. REASON FOR CONSULTATION: Left arm abscess and cellulitis. HISTORY OF PRESENT ILLNESS: The patient is a 32-year-old female with past medical history significant for IV drug use. The last time she used any IV drugs was about 2 weeks ago. The patient did not recall if she broke any of her needles while injecting. She is presenting to the ER at [facility] yesterday afternoon with the chief complaints of left arm pain swelling and redness that has been going on for about 4 days prior to presentation to hospital. The patient's pain is mostly in the forearm area. Described the pain to be throbbing almost 8 to 9/10, and no radiation. The patient did have difficulty extending her left forearm. The patient complaining of fever and chills. With these symptoms, the patient has been evaluated by the ER physician. On arrival to the ER, patient did not have any high-grade fever, though white count was elevated at 12.9. UA was positive. The patient did have x-rays followed by CT that was negative for any abscess though did show some foreign body. The patient has been treated with broad-spectrum antibiotic in the form of vancomycin and Zosyn and previously received a dose of Rocephin. Infectious Disease was consulted for further recommendation regarding antibiotic therapy. The patient has been evaluated by the Ortho who is recommending a Vascular Surgery evaluation for possible removal of the foreign body. REVIEW OF SYSTEMS: CONSTITUTIONAL: Positive for weakness and fever. EYES: No complaint. ENT: No complaint. RESPIRATORY: No complaint. CARDIOVASCULAR: No complaint. GENITOURINARY: No complaint. GASTROINTESTINAL: No complaint. MUSCULOSKELETAL: As per HPI. INTEGUMENTARY: As per HPI. PSYCHOLOGICAL: No complaint. ENDOCRINE: No complaint. NEUROLOGIC: No complaint. PAST MEDICAL HISTORY: Significant for fibromyalgia, asthma, pneumonia, previous history of right hand MRSA infection. PAST SURGICAL HISTORY: Right hand drainage of an abscess . SOCIAL HISTORY: Positive for smoking and drug use as mentioned above. FAMILY HISTORY: Mother with history of CVA, TIA and hypertension. ALLERGIES: TRAMADOL. MEDICATIONS: The patient is currently on Tylenol, heparin, Toradol, Ativan, vancomycin pharmacy to dose. He is on nicotine patch, Zofran, Protonix, Zosyn, Restoril and vancomycin. EXAMINATION: Blood pressure 109/53 with a pulse of 85, temperature 98.7. She is 98% on room air. General description is a middle aged female lying in bed in no distress. No tachypnea or accessory muscle respiration use. HEENT: Shows no pallor or scleral icterus. Oral mucosa is dry. No pharyngeal erythema or thrush. NECK: Trachea central, no thyromegaly. LUNGS: Unlabored breathing. Clear to auscultation anteriorly. No wheeze or crackle. HEART: S1, S2. Regular rate and rhythm. ABDOMEN: Soft, no tenderness. No guarding, no rigidity. EXTREMITIES: No edema feet. Examination of the left forearm is swollen, indurated and painful to touch, slightly warm. No drainage. NEUROLOGICAL: Patient is awake, alert, oriented x3. Mood and affect normal. LABS: Hemoglobin is 12.1, white count 11.2, BUN of 6, creatinine 0.61. Urine is positive. Blood culture is currently pending. DIAGNOSTIC IMPRESSION AND PLAN: Patient with left forearm abscess and cellulitis likely from IV drug use with question of possible retained needle. CT did not show any evidence of any abscess. The likely organism to cover will be the MRSA and Pseudomonas aeruginosa to be the likely pathogen. PLAN: 1. Await the Vascular Surgery evaluation and at time of removal of the foreign body will recommend obtaining deep cultures. 2. Vancomycin pharmacy to dose with target of 15 while watching the kidney function closely. 3. Zosyn 3.75 g q.8 hours. 4. We will follow up on clinical condition as well as cultures to further adjust medication if needed. Thank you for this consultation. Will follow this patient along with you. MMODL / IJN: [id number] /
[2017-11-27] MEDS: VANCOMYCIN 1,000 MG in SODIUM CHLORIDE 0.9% 250 ML IVPB SCH ×2 (00:15→07:18)
[2017-11-27] MEDS: PIPERACILLIN-TAZOBACTAM 3.375 GM in DEXTROSE/WATER 1 50ML.BAG IVPB SCH ×3 (02:34→18:08)
[2017-11-27] MEDS: ACETAMINOPHEN TAB 500 MG TAB PO PRN (05:28)
[2017-11-27] MEDS: KETOROLAC 30 MG/ML 1 ML VIAL IVP PRN ×2 (05:29→12:32)
[2017-11-27] MEDS: LORazepam 0.5 MG TAB PO PRN ×2 (05:30→12:32)
[2017-11-27] MEDS: SODIUM CHLORIDE 0.9% 1,000 ML IV SCH ×2 (05:31→10:56)
[2017-11-27] MEDS: PANTOPRAZOLE 40 MG TABLET PO SCH (07:18)
[2017-11-27] MEDS: HEPARIN SODIUM,PORCINE 5,000 UNIT/ML 1 ML VIAL SQ SCH (07:19)
[2017-11-27] MEDS: NICOTINE 14MG/24HR PATCH TRANSDERM SCH (07:19)
[2017-11-27 08:51] LABS: Basophils # (A) 0.1 k/uL (0-0.2); Basophils % (A) 0 %; Eosinophils # (A) 0.2 k/uL (0-0.7); Eosinophils % (A) 1 %; HGB 10.8 gm/dL (11.4-16.0); Lymphocytes # (A) 1.3 k/uL (1.0-4.8); Lymphocytes % (A) 12 %; MCH 29.1 pg (25.0-35.0); MCHC 31.8 g/dL (31.0-37.0); MCV 91.6 fL (80.0-100.0); Mean Platelet Volume 7.1; Monocytes # (A) 0.7 k/uL (0-1.0); Monocytes % (A) 7 %; Neutrophils # (A) 8.6 k/uL (1.3-7.7); Neutrophils % (A) 79 %; Platelet Count 288 k/uL (150-450); RBC 3.72 m/uL (3.80-5.40); RDW 13.4 % (11.5-15.5); WBC 10.9 k/uL (3.8-10.6)
[2017-11-27 09:00] LABS: Albumin 2.8 g/dL (3.5-5.0); Anion Gap 9 mmol/L; Calcium 8.3 mg/dL (8.4-10.2); Carbon Dioxide 22 mmol/L (22-30); Chloride 109 mmol/L (98-107); Glucose 123 mg/dL (74-99); Sodium 140 mmol/L (137-145); Total Bilirubin 0.5 mg/dL (0.2-1.3); Total Protein 5.8 g/dL (6.3-8.2)
[2017-11-27 09:02] LABS: ALT 74 U/L (9-52); AST 51 U/L (14-36); Alkaline Phosphatase 53 U/L (38-126); Blood Urea Nitrogen 6 mg/dL (7-17)
--- NOTE | 2017-11-27 09:51 | P.PN ---
Subjective Progress Note Date: 11/27/17 This is a 32-year-old female who is admitted for left forearm cellulitis. Patient states that her pain is about the same today. Patient denies any new symptoms or complaints. Patient denies any numbness, weakness, tingling, abdominal pain, shortness of breath or chest pain. Objective - Vital Signs Vital signs: Vital Signs Temp 100.7 F H 11/27/17 05:30 Pulse 110 H 11/27/17 05:30 Resp 20 11/27/17 05:30 BP 108/65 11/27/17 05:30 Pulse Ox 97 11/27/17 05:30 Intake & Output 11/26/17 11/27/17 11/27/17 18:59 06:59 18:59 Intake Total 1300 1680 Balance 1300 1680 Weight 54.431 kg Intake: Intake, IV Titration 900 1330 Amount Piperacillin-Tazobactam 3 50 .375 gm In Dextrose/Water 1 50ml.bag @ 12.5 mls/hr IVPB Q8HR GIOVANI Rx#: [id number] Sodium Chloride 0.9% 1, 600 1080 000 ml @ 120 mls/hr IV . Q8H20M GIOVANI Rx#:[id number] Vancomycin 1,000 mg In 250 250 Sodium Chloride 0.9% 250 ml @ 125 mls/hr IVPB Q8H GIOVANI Rx#:[id number] Oral 400 350 Other: Voiding Method Toilet # Voids 1 1 - Exam On exam there is swelling over the volar aspect of the proximal left forearm. There is no erythema. There is no fluctuance. Patient has pain and limitation with extension of the left elbow. Patient has full left wrist and hand range of motion. Sensation is intact. Radial pulses 2+. Neurovascular status and circulatory status are intact. - Labs CBC & Chem 7: 11/27/17 08:00 11/27/17 08:00 Labs: Microbiology - Last 24 Hours (Table) 11/25/17 13:50 Urine Culture - Preliminary Urine,Voided Gram Neg Bacilli 11/25/17 13:50 Blood Culture - Preliminary Blood No Growth after 24 hours Assessment and Plan (1) Cellulitis of left forearm Current Visit: Yes Status: Acute Code(s): L03.114 - CELLULITIS OF LEFT UPPER LIMB SNOMED Code(s): 21589248 (2) Foreign body (FB) in soft tissue Current Visit: Yes Status: Acute Code(s): M79.5 - RESIDUAL FOREIGN BODY IN SOFT TISSUE SNOMED Code(s): 502924032 (3) IV drug abuse Current Visit: Yes Status: Acute Code(s): F19.10 - OTHER PSYCHOACTIVE SUBSTANCE ABUSE, UNCOMPLICATED SNOMED Code(s): 238953812 Plan: 1. Recommend warm compresses to the left forearm. 2. Continue IV antibiotics per infectious disease. 3. CT of the left forearm pending. 4. No surgical intervention planned. Will continue to follow.
--- NOTE | 2017-11-27 11:21 | CDI ---
Last Revision, February 2017 Documentation Clarification Form Date: 11/27/17 From: Dilcia Carlson RN, CCDS Admit Date: 11/25/2017 5:34:00 PM Patient Name: Leyla Villagomez Visit Number: [id number] Discharge Date: ATTENTION: The Clinical Documentation Specialists (CDI) and [facility] Coding Staff appreciate your assistance in clarifying documentation. Please respond to the clarification below the line at the bottom and electronically sign. The CDI & [facility] Coding staff will review the response and follow-up if needed. Please note: Queries are made part of the Legal Health Record. If you have any questions, please contact the author of this message via ITS. Ron Samaniego MD ED evaluation has noted patient meet sepsis criteria. History/Risk Factors: Fibromyalgia, MRSA, IV Drug abuse, current every day smoker Clinical Indicators: Present with complaint of left arm pain x4 days. Patient admits to injecting heroin in left arm 1.5 weeks ago. She is more tired, she states that she was sweaty this morning when she awakened. WBC 12.9 with left shift, Neutrophils 10.4 UA: Positive nitrites and moderate leukocyte esterase with 37 white cell Urine Culture: Gram neg bacilli Lactic acid: 1.1 C - reactive protein 139.2 Blood cultures: Preliminary No growth after 24 hours Left forearm X-ray: [id number] diffuse subcutaneous edema, linear foreign bodies at level of cubital fossa. Vitals signs on admission: 95/60 97 16 98.7 11/26/17@ 20:25 111/56 110 102.5 Treatment: Zosyn IV IV fluids Vancomycin IV Monitor labs IV Bolus x2 ID Consult: Patient complaining of fever and chills, did not have any high- grade fever , though white count was elevated at 12.9. UA was positive. Left forearm abscess and cellulitis likely from IV drug use with question of possible retained needle. In your professional opinion, please clarify if these findings signify one of the following conditions, whether the condition is POA, and cause, if known: Condition Sepsis ruled out Sepsis Severe Sepsis Septic Shock Other, please specify Unable to determine Present on Admission: Yes No Identify the (suspected) organism Link or clarify if there is associated (due to/with): Organ failure Shock SIRS Criteria..2 or more of the following may indicate SIRS: Temperature < 96.8F (36C) or > 101.0F (38.3C) Heart Rate > 90 bpm Respiratory Rate > 20 breaths/min or PaCO2 < 32 mmHg White Blood Cell Count > 12,000 or < 4,000 cells/mm3 or > 10% bands Lactate >2.0 mmol/L (>4.0 is equivalent to septic shock) Please continue to document in your progress notes and discharge summary in order to capture severity of illness and risk of mortality. Include clinical findings that support your diagnosis. Sepsis MTDD
--- NOTE | 2017-11-27 12:57 | CT ---
EXAMINATION TYPE: CT forearm LT w con DATE OF EXAM: 11/27/2017 COMPARISON: 11/25/2017 CT and radiographs HISTORY: 32-year-old female increasing swelling, IVDA. TECHNIQUE: Contiguous axial scanning of the left forearm performed with IV Contrast, patient injected with 100 mL of Isovue 300. Coronal/sagittal reconstructions performed. CT DLP: 121 mGycm Automated exposure control for dose reduction was used. FINDINGS: The patient was unable to straighten their arm. Positioning in the gantry causing significant artifac ts and exam limitations. Needle fragment noted in the region of the antecubital fossa. Allowing for the severe artifacts, there are low density areas, suspected intramuscular abscess withi n the extensor compartment measuring up to at least 6.9 cm long and 3.2 cm wide. Diffuse soft tissue swelling. Any further evaluation is severely limited. No elbow joint effusion see n. Proximally, an additional abscess along the extensor compartment suspected to measure up to 5.7 cm lo ng and 1.3 cm wide, refer to sagittal series 8 images 31 and 29 as well as axial series 10 image 68. IMPRESSION: 1. PATIENT WAS UNABLE TO STRAIGHTEN HER ELBOW. POSITIONING WITHIN THE GANTRY RESULTED IN SEVERE ARTIF ACTS LIMITING THE EXAM. RETAINED NEEDLE FRAGMENT AT THE ANTECUBITAL FOSSA. 2. HOWEVER, SUSPECT EXTENSIVE INFECTIOUS MYOSITIS WITH INTRAMUSCULAR ABSCESSES INVOLVING THE EXTENSOR COMPARTMENT. PROXIMALLY, ABSCESS SUSPECTED TO MEASURE UP TO 5.7 X 1.3 CM AND ALONG THE MIDFOREARM AL SO EXTENDING ALONG THE EXTENSOR COMPARTMENT, ABSCESS IS SUSPECTED TO MEASURE UP TO 6.9 X 3.2 CM. SURG ICAL CONSULTATION MAY BE NEEDED. IF MORE DETAILED ASSESSMENT IS NEEDED, CONTRAST ENHANCED MRI MAY BE INDICATED.
--- NOTE | 2017-11-27 15:17 | PN ---
PROGRESS NOTE DATE OF SERVICE: 11/27/2017 REASON FOR FOLLOWUP: Left forearm abscess. INTERVAL HISTORY: Patient has been spiking a fever with a fever of 102.5 last night and 100.7 this morning. Patient currently complaining of pain to the left forearm area. Pain is mostly throbbing almost 7 to 8/10. Patient denies having any chest pain, shortness of breath or cough. No abdominal pain, no diarrhea. PHYSICAL EXAMINATION: Blood pressure is 108/65, pulse 110, temperature 100.7; O2 she is 97% on room air. General description is a middle-aged female, up in the bed in no distress. RESPIRATORY SYSTEM: Unlabored breathing, clear to auscultation anteriorly. HEART: S1, S2. Regular rate and rhythm. ABDOMEN: Soft, nontender. Left forearm is smooth and tender. LABS: White count of 10.9, BUN of 6, creatinine 0.59. The patient did have a CT of the forearm with contrast that did show extensive abscess. DIAGNOSTIC IMPRESSION AND PLAN: Patient with extensive left forearm abscess from injection of drug use. Patient needs extensive surgery which should be performed emergently with deep cultures or the patient transferred to tertiary care. She is on vancomycin, pharmacy to dose along will be continued while awaiting for the culture to finalize. Family present at the bedside, their questions were answered. MMODL / IJN: [id number] /
[2017-11-27] MEDS ORDERED: VANCOMYCIN 1,250 MG in SODIUM CHLORIDE 0.9% 250 ML IVPB SCH (16:00)
--- NOTE | 2017-11-27 16:47 | PN ---
PROGRESS NOTE DATE OF SERVICE: 11/27/2017. INTERVAL HISTORY: This 32-year-old woman admitted with acute pain and swelling, cellulitis of the left arm, also had foreign body in the antecubital fossa. The patient closely monitored. No chest pain. No palpitations. No fever. The forearm CT scan was repeated today. Dr. Madden and Dr. Quintanilla are following the patient closely. Repeat CT scan shows extensive infectious myositis with intramuscular abscess involving the extensor compartment was also noted. No chest pain. No palpitations. No fever. PAST MEDICAL HISTORY: Reviewed. REVIEW OF SYSTEMS: CARDIOVASCULAR: No angina. RESPIRATORY: As mentioned earlier. GI: As mentioned. : No dysuria. NERVOUS SYSTEM: No numbness or tingling. CURRENT MEDICATIONS: Reviewed and include: 1. Tylenol 500 mg q.6h p.r.n. 2. Heparin 5 subcu b.i.d. 3. Toradol 15 mg p.r.n. 4. Ativan 0.5 mg. 5. Habitrol. 6. Zofran. 7. Protonix. 8. Zosyn 3.375 IV q.8h. 9. Restoril. 10.Vancomycin. PHYSICAL EXAM: Patient is alert, oriented x3. Pulse 110, blood pressure 108/60, respiration 20, temperature 100.7, pulse ox 97% on room air. HEENT: Conjunctivae normal. Oral mucous moist. NECK: No jugular venous distention. No carotid bruit. No lymph node enlargement. CARDIOVASCULAR: S1, S2. RESPIRATORY: Breath sounds diminished in the bases. Bilateral scattered rhonchi and crackles. ABDOMEN: Soft, nontender. LEGS: No edema. NERVOUS SYSTEM: No focal deficit. Examination of the left arm: Significant pain and swelling. LABS: WBC 10.2, hemoglobin 10.8. AST is 51, ALT 74, albumin is 2.8. ASSESSMENT: 1. Acute pain and swelling of the left arm with possible myositis and cellulitis with possible sepsis. 2. Status post IV drug abuse and foreign body in the left antecubital fossa. 3. Urinary tract infection. 4. Increased AST, ALT, hepatitis possibly. 5. Increased random blood sugar. 6. Increased WBC. 7. Fibromyalgia. 8. Chronic back pain. 9. History of MRSA. 10.History of anxiety. 11.History of nicotine dependence. 12.History of polysubstance abuse including heroin. RECOMMENDATIONS AND DISCUSSION: I recommend to continue current medications, monitoring and symptomatic treatment. Otherwise, at this time I recommend follow closely with Orthopedic Surgery and as well as Infectious Disease. Guarded prognosis because of multiple complex medical issues. Further recommendations to follow. See orders for details. Repeat CT scan was noted. MMODL / IJN: [id number] /
[2017-11-27 16:55] VITALS: BP 120/68; PULSE 104; RESP 20; TEMP 99.7
--- NOTE | 2017-11-27 21:50 | DS ---
DISCHARGE SUMMARY DATE OF SERVICE: 11/27/2017 FINAL DIAGNOSES: 1. Pain and swelling of the left arm with possible left arm cellulitis, myositis with possible abscess with sepsis. 2. Status post IV drug abuse and foreign bodies in the left antecubital fossa. 3. Urinary tract infection. 4. Increased AST, ALT, possibly hepatitis secondary to drugs. 5. Increased random blood sugar. 6. Increased white count. 7. Fibromyalgia. 8. Chronic back pain. 9. History of methicillin-resistant Staphylococcus aeruginosa. 10.History of anxiety. 11.Nicotine dependence. 12.History of polysubstance abuse, including heroin. DISCHARGE DISPOSITION: The patient will be discharged in stable condition with guarded prognosis. Patient will be transferred to [facility]. HISTORY OF PRESENT ILLNESS: This 32-year-old woman with a past medical history of multiple medical problems was admitted with pain and swelling of the left forearm and hand. The patient had a foreign body also. The patient was evaluated by two CT scans. The patient was put on IV antibiotics. Infectious Disease, Orthopedics and Vascular saw the patient. Please refer to their respective notes for further details. A repeat CT scan showed significant findings, including myositis and possibly abscess also. Dr. Madden discussed the case with [facility] also per orthopedic recommendations and the patient will be transferred to [facility] for further evaluation and treatment. The prognosis is extremely guarded, but patient is currently stable. The urine culture is currently showing gram-negative bacilli. CURRENT MEDICATIONS: 1. Tylenol. 2. Heparin 5000 units subcutaneously b.i.d. 3. Ketoralac. 4. Ativan p.r.n. 5. Habitrol 14. 6. Zosyn 3.375 IV q.8. 7. Vancomycin 1.25 IV q.8. MMODL / IJN: [id number] /
== END 2017-11-27 18:15 | disposition short-term general hospital (02) | DRG 872 ==
LOC: EC 14:21 → 5MS5E 17:34
PROVIDERS: ADMIT Hospitalist; ATTEND Hospitalist
DX: A41.9 Sepsis, unspecified organism (principal); L03.114 Cellulitis of left upper limb; L02.414 Cutaneous abscess of left upper limb; M60.009 Infective myositis, unspecified site; N39.0 Urinary tract infection, site not specified; F17.200 Nicotine dependence, unspecified, uncomplicated; G89.29 Other chronic pain; K75.9 Inflammatory liver disease, unspecified; M79.7 Fibromyalgia; Z82.49 Family history of ischemic heart disease and other diseases of the circulatory system; Z86.14 Personal history of Methicillin resistant Staphylococcus aureus infection; F11.10 Opioid abuse, uncomplicated; F19.10 Other psychoactive substance abuse, uncomplicated; M54.9 Dorsalgia, unspecified; M79.5 Residual foreign body in soft tissue; B96.89 Other specified bacterial agents as the cause of diseases classified elsewhere; Z87.01 Personal history of pneumonia (recurrent); Z87.440 Personal history of urinary (tract) infections; Z82.3 Family history of stroke; Z88.5 Allergy status to narcotic agent
CPT/HCPCS: 36415; 80048; 80053; 80202; 81001; 83605; 85025; 86140; 87040; 87077; 87086; 87186; 96361; 96365; 96375; 99285

== ENCOUNTER 2017-12-11 17:04 | Emergency (ER) | payer OTHER ==
[2017-12-11] MEDS ORDERED: SODIUM CHLORIDE 0.9% 1,000 ML IV ONE (17:24)
[2017-12-11] MEDS ORDERED: NALOXONE 0.4 MG/ML 10 ML VIAL IVP STA (17:24)
--- NOTE | 2017-12-11 18:04 | ED ---
General Adult HPI - General Chief complaint: Recheck/Abnormal Lab/Rx Stated complaint: nausea/weakness-post op Time Seen by Provider: 12/11/17 17:10 Source: patient, EMS, RN notes reviewed Mode of arrival: EMS Limitations: no limitations - History of Present Illness Initial comments: 32-year-old female presented emergency department for concerns of weakness, nausea. Patient states that she had fasciotomy to her left arm secondary to infection from heroin abuse. She states that she has not used recently. Family and home nurse states that she is very drowsy and is not her usual self. Patient denies any fevers or chills. Denies any drainage or increased redness from her site. Patient states that she was admitted the hospital approximately 10 days ago here and had surgery down at [facility]. - Related Data Home Medications Medication Instructions Recorded Confirmed Ibuprofen [Motrin] 600 mg PO Q8HR PRN 12/11/17 12/11/17 Allergies Allergy/AdvReac Type Severity Reaction Status Date / Time tramadol Allergy Rapid Verified 12/11/17 17:17 Heart Rate Review of Systems ROS Statement: Those systems with pertinent positive or pertinent negative responses have been documented in the HPI. ROS Other: All systems not noted in ROS Statement are negative. Past Medical History Past Medical History: Asthma, Fibromyalgia, Pneumonia Additional Past Medical History / Comment(s): chronic back pain, asthma as child , pne age 1, past uti-ecoli, seizure x 1 few years ago pt stated "they thought it may be due to dehydration", anxiety History of Any Multi-Drug Resistant Organisms: MRSA Date of last positivie culture/infection: 2010/ unk infection rt hand MDRO Source:: rt hand Past Surgical History: Orthopedic Surgery Additional Past Surgical History / Comment(s): rt hand surgery d/t infection Past Anesthesia/Blood Transfusion Reactions: No Reported Reaction Past Psychological History: Anxiety, Panic Disorder Smoking Status: Current every day smoker Past Alcohol Use History: None Reported Past Drug Use History: Marijuana - Past Family History Mother Family Medical History: CVA/TIA, Hypertension Additional Family Medical History / Comment(s): loop recorder /ep study Father Family Medical History: Hypertension Additional Family Medical History / Comment(s): aaa(sx) General Exam Limitations: no limitations General appearance: alert, in no apparent distress Head exam: Present: atraumatic, normocephalic, normal inspection Neck exam: Present: normal inspection. Absent: tenderness, meningismus, lymphadenopathy Respiratory exam: Present: normal lung sounds bilaterally. Absent: respiratory distress, wheezes, rales, rhonchi, stridor Cardiovascular Exam: Present: regular rate, normal rhythm, normal heart sounds. Absent: systolic murmur, diastolic murmur, rubs, gallop, clicks Extremities exam: Present: other (Left arm there is open fasciotomy noted drainage no erythema surrounding the borders. approximately 5 inches pulses are equal bilaterally) Skin exam: Present: warm, dry Course Vital Signs 12/11/17 12/11/17 12/11/17 17:08 17:40 17:45 Temperature 97.4 F L Pulse Rate 78 Respiratory 18 12 12 Rate Blood Pressure 98/58 O2 Sat by Pulse 98 Oximetry - Reevaluation(s) Reevaluation #1: 12/11/17 18:50 Patient merely woke up, was alert and orientated after Narcan. Medical Decision Making - Medical Decision Making 32-year-old female presented to emergency department for weakness, generalized drowsiness not acting appropriate. Patient was given Narcan emergency department as she appeared to be under influence of opiates. Patient is awake alert and orientated times for this time. Family states that she's had a normal baseline. I did a long discussion regarding drug abuse. She is positive for amphetamines, marijuana and opiates. Patient states that she is trying to get help and Suboxone or methadone group. Patient instructed that she needs to discontinue drug abuse. - Lab Data Result diagrams: 12/11/17 17:50 12/11/17 17:50 Lab Results 12/11/17 12/11/17 12/11/17 Range/Units 17:50 17:50 17:50 WBC 5.3 (3.8-10.6) k/uL RBC 3.54 L (3.80-5.40) m/uL Hgb 10.7 L (11.4-16.0) gm/dL Hct 33.0 L (34.0-46.0) % MCV 93.1 (80.0-100.0) fL MCH 30.2 (25.0-35.0) pg MCHC 32.4 (31.0-37.0) g/dL RDW 13.7 (11.5-15.5) % Plt Count 341 (150-450) k/uL Neutrophils % 56 % Lymphocytes % 33 % Monocytes % 6 % Eosinophils % 2 % Basophils % 1 % Neutrophils # 3.0 (1.3-7.7) k/uL Lymphocytes # 1.8 (1.0-4.8) k/uL Monocytes # 0.3 (0-1.0) k/uL Eosinophils # 0.1 (0-0.7) k/uL Basophils # 0.0 (0-0.2) k/uL Sodium 135 L (137-145) mmol/L Potassium 4.4 (3.5-5.1) mmol/L Chloride 104 (98-107) mmol/L Carbon Dioxide 26 (22-30) mmol/L Anion Gap 5 mmol/L BUN 16 (7-17) mg/dL Creatinine 0.55 (0.52-1.04) mg/dL Est GFR (CKD-EPI)AfAm >90 (>60 ml/min/1.73 sqM) Est GFR (CKD-EPI)NonAf >90 (>60 ml/min/1.73 sqM) Glucose 81 (74-99) mg/dL Plasma Lactic Acid Av 0.6 L (0.7-2.0) mmol/L Calcium 8.2 L (8.4-10.2) mg/dL Total Bilirubin 0.3 (0.2-1.3) mg/dL AST 29 (14-36) U/L ALT 38 (9-52) U/L Alkaline Phosphatase 48 (38-126) U/L Ammonia 16 (<30) umol/L Total Protein 6.2 L (6.3-8.2) g/dL Albumin 3.2 L (3.5-5.0) g/dL Lipase 58 (23-300) U/L Urine Color Urine Appearance (Clear) Urine pH (5.0-8.0) Ur Specific [place] (1.001-1.035) Urine Protein (Negative) Urine Glucose (UA) (Negative) Urine Ketones (Negative) Urine Blood (Negative) Urine Nitrite (Negative) Urine Bilirubin (Negative) Urine Urobilinogen (<2.0) mg/dL Ur Leukocyte Esterase (Negative) Urine Opiates Screen (NotDetected) Ur Oxycodone Screen (NotDetected) Urine Methadone Screen (NotDetected) Ur Propoxyphene Screen (NotDetected) Ur Barbiturates Screen (NotDetected) U Tricyclic Antidepress (NotDetected) Ur Phencyclidine Scrn (NotDetected) Ur Amphetamines Screen (NotDetected) U Methamphetamines Scrn (NotDetected) U Benzodiazepines Scrn (NotDetected) Urine Cocaine Screen (NotDetected) U Marijuana (THC) Screen (NotDetected) 12/11/17 Range/Units 17:50 WBC (3.8-10.6) k/uL RBC (3.80-5.40) m/uL Hgb (11.4-16.0) gm/dL Hct (34.0-46.0) % MCV (80.0-100.0) fL MCH (25.0-35.0) pg MCHC (31.0-37.0) g/dL RDW (11.5-15.5) % Plt Count (150-450) k/uL Neutrophils % % Lymphocytes % % Monocytes % % Eosinophils % % Basophils % % Neutrophils # (1.3-7.7) k/uL Lymphocytes # (1.0-4.8) k/uL Monocytes # (0-1.0) k/uL Eosinophils # (0-0.7) k/uL Basophils # (0-0.2) k/uL Sodium (137-145) mmol/L Potassium (3.5-5.1) mmol/L Chloride (98-107) mmol/L Carbon Dioxide (22-30) mmol/L Anion Gap mmol/L BUN (7-17) mg/dL Creatinine (0.52-1.04) mg/dL Est GFR (CKD-EPI)AfAm (>60 ml/min/1.73 sqM) Est GFR (CKD-EPI)NonAf (>60 ml/min/1.73 sqM) Glucose (74-99) mg/dL Plasma Lactic Acid Av (0.7-2.0) mmol/L Calcium (8.4-10.2) mg/dL Total Bilirubin (0.2-1.3) mg/dL AST (14-36) U/L ALT (9-52) U/L Alkaline Phosphatase (38-126) U/L Ammonia (<30) umol/L Total Protein (6.3-8.2) g/dL Albumin (3.5-5.0) g/dL Lipase (23-300) U/L Urine Color Light Yellow Urine Appearance Clear (Clear) Urine pH 5.5 (5.0-8.0) Ur Specific [place] 1.016 (1.001-1.035) Urine Protein Negative (Negative) Urine Glucose (UA) Negative (Negative) Urine Ketones Negative (Negative) Urine Blood Negative (Negative) Urine Nitrite Negative (Negative) Urine Bilirubin Negative (Negative) Urine Urobilinogen <2.0 (<2.0) mg/dL Ur Leukocyte Esterase Negative (Negative) Urine Opiates Screen Detected H (NotDetected) Ur Oxycodone Screen Not Detected (NotDetected) Urine Methadone Screen Not Detected (NotDetected) Ur Propoxyphene Screen Not Detected (NotDetected) Ur Barbiturates Screen Not Detected (NotDetected) U Tricyclic Antidepress Not Detected (NotDetected) Ur Phencyclidine Scrn Not Detected (NotDetected) Ur Amphetamines Screen Detected H (NotDetected) U Methamphetamines Scrn Not Detected (NotDetected) U Benzodiazepines Scrn Not Detected (NotDetected) Urine Cocaine Screen Not Detected (NotDetected) U Marijuana (THC) Screen Detected H (NotDetected) Disposition Clinical Impression: Opiate overdose, Encounter for wound re-check, History of fasciotomy Disposition: HOME SELF-CARE Condition: Stable Instructions: Opioid Use Disorder (ED) Additional Instructions: Please return to the Emergency Department if symptoms worsen or any other concerns. Is patient prescribed a controlled substance at d/c from ED?: No Referrals: None,Stated [Primary Care Provider] - 1-2 days Time of Disposition: 18:52
[2017-12-11 18:09] LABS: Appearance,Urine Clear (Clear); Basophils % (A) 1 %; Bilirubin,Urine Negative (Negative); Blood,Urine Negative (Negative); Color,Urine Light Yellow; Eosinophils # (A) 0.1 k/uL (0-0.7); Eosinophils % (A) 2 %; Glucose,Urine (UA) Negative (Negative); HGB 10.7 gm/dL (11.4-16.0); Ketones,Urine Negative (Negative); Leukocyte Esterase,Urine Negative (Negative); Lymphocytes # (A) 1.8 k/uL (1.0-4.8); Lymphocytes % (A) 33 %; MCH 30.2 pg (25.0-35.0); MCHC 32.4 g/dL (31.0-37.0); MCV 93.1 fL (80.0-100.0); Mean Platelet Volume 6.8; Monocytes # (A) 0.3 k/uL (0-1.0); Monocytes % (A) 6 %; Neutrophils % (A) 56 %; Nitrite,Urine Negative (Negative); PH, Urine 5.5 (5.0-8.0); Platelet Count 341 k/uL (150-450); Protein,Urine Negative (Negative); RBC 3.54 m/uL (3.80-5.40); RDW 13.7 % (11.5-15.5); Specific Gravity,Urine 1.016 (1.001-1.035); Urobilinogen,Urine <2.0 mg/dL (<2.0); WBC 5.3 k/uL (3.8-10.6)
[2017-12-11 18:18] LABS: Amphetamine Screen,Urine Detected (NotDetected); Barbiturate Screen,Urine Not Detected (NotDetected); Benzodiazepines Screen,Urine Not Detected (NotDetected); Cocaine Screen,Urine Not Detected (NotDetected); Methadone Screen, Urine Not Detected (NotDetected); Opiate Screen,Urine Detected (NotDetected); Oxycodone Screen, Urine Not Detected (NotDetected); Phencyclidine Screen,Urine Not Detected (NotDetected); Tricyclic Antidepressant,Urine Not Detected (NotDetected); Urn Cannabinoid Scrn Detected (NotDetected)
[2017-12-11 18:20] LABS: Lactic Acid, Venous 0.6 mmol/L (0.7-2.0)
[2017-12-11 18:21] LABS: ALT 38 U/L (9-52); AST 29 U/L (14-36); Albumin 3.2 g/dL (3.5-5.0); Alkaline Phosphatase 48 U/L (38-126); Anion Gap 5 mmol/L; Blood Urea Nitrogen 16 mg/dL (7-17); Calcium 8.2 mg/dL (8.4-10.2); Carbon Dioxide 26 mmol/L (22-30); Chloride 104 mmol/L (98-107); Glucose 81 mg/dL (74-99); Lipase 58 U/L (23-300); Potassium 4.4 mmol/L (3.5-5.1); Sodium 135 mmol/L (137-145); Total Bilirubin 0.3 mg/dL (0.2-1.3); Total Protein 6.2 g/dL (6.3-8.2)
[2017-12-11 19:10] VITALS: BP 108/52; PULSE 81; RESP 16; TEMP 98.6
== END 2017-12-11 19:10 | disposition home or self-care (01) ==
LOC: EC 17:04
DX: T40.601A Poisoning by unspecified narcotics, accidental (unintentional), initial encounter (principal); R53.1 Weakness; R11.0 Nausea; Z48.01 Encounter for change or removal of surgical wound dressing; F17.200 Nicotine dependence, unspecified, uncomplicated; Z86.14 Personal history of Methicillin resistant Staphylococcus aureus infection; Z88.5 Allergy status to narcotic agent; Z98.890 Other specified postprocedural states
CPT/HCPCS: 36415; 80053; 82140; 83605; 83690; 85025; 81003; 80306; 99285; 96374; 96361; J2310

== ENCOUNTER 2019-11-22 22:40 | Emergency (ER) | payer OTHER ==
[2019-11-22] MEDS ORDERED: ACETAMINOPHEN TAB 325 MG TAB PO STA (23:10)
[2019-11-22] MEDS ORDERED: SODIUM CHLORIDE 0.9% 1,000 ML IV SCH (23:15)
[2019-11-22] MEDS ORDERED: VANCOMYCIN IV PER PHARMACY 1 EACH MISC MISCELLANE PRN (23:20)
[2019-11-22] MEDS ORDERED: VANCOMYCIN 1,500 MG in SODIUM CHLORIDE 0.9% 250 ML IVPB STA (23:24)
[2019-11-22] MEDS: SODIUM CHLORIDE 0.9% 500 ML 500 ML IV SCH (23:47)
[2019-11-22 23:51] LABS: Basophils # (A) 0.1 k/uL (0-0.2); Basophils % (A) 0 %; Eosinophils # (A) 0.1 k/uL (0-0.7); Eosinophils % (A) 1 %; HCT 41.7 % (34.0-46.0); HGB 13.6 gm/dL (11.4-16.0); Lymphocytes # (A) 1.3 k/uL (1.0-4.8); Lymphocytes % (A) 8 %; MCH 29.6 pg (25.0-35.0); MCHC 32.5 g/dL (31.0-37.0); MCV 91.1 fL (80.0-100.0); Mean Platelet Volume 7.2; Monocytes # (A) 0.6 k/uL (0-1.0); Monocytes % (A) 3 %; Neutrophils # (A) 14.5 k/uL (1.3-7.7); Neutrophils % (A) 87 %; Platelet Count 389 k/uL (150-450); RBC 4.58 m/uL (3.80-5.40); RDW 12.6 % (11.5-15.5); WBC 16.6 k/uL (3.8-10.6)
[2019-11-23] LABS: ALT 32 U/L (4-34); AST 29 U/L (14-36); African American GFR (CKD) >90 (>60 ml/min/1.73 sqM); Albumin 4.3 g/dL (3.5-5.0); Alkaline Phosphatase 99 U/L (38-126); Anion Gap 10 mmol/L; Blood Urea Nitrogen 11 mg/dL (7-17); Calcium 9.1 mg/dL (8.4-10.2); Carbon Dioxide 26 mmol/L (22-30); Chloride 102 mmol/L (98-107); Glucose 132 mg/dL (74-99); Non-African American GFR(CKD) >90 (>60 ml/min/1.73 sqM); Potassium 4.1 mmol/L (3.5-5.1); Sodium 138 mmol/L (137-145); Total Bilirubin 0.4 mg/dL (0.2-1.3); Total Protein 8.3 g/dL (6.3-8.2)
[2019-11-23 00:15] LABS: INR 0.9 (<1.2); Partial Thromboplastin Time 23.5 sec (22.0-30.0); Prothrombin Time 9.6 sec (9.0-12.0)
[2019-11-23 00:16] LABS: Appearance,Urine Clear (Clear); Bilirubin,Urine Negative (Negative); Blood,Urine Negative (Negative); Color,Urine Yellow; Glucose,Urine (UA) Negative (Negative); Ketones,Urine Negative (Negative); Leukocyte Esterase,Urine Trace (Negative); Mucus,Urine Few /hpf; Nitrite,Urine Negative (Negative); Protein,Urine Trace (Negative); RBC,Urine 6 /hpf (0-5); Specific Gravity,Urine 1.027 (1.001-1.035); Squamous Epithelial Cell,Urine 1 /hpf (0-4); Urobilinogen,Urine <2.0 mg/dL (<2.0); WBC,Urine 5 /hpf (0-5)
--- NOTE | 2019-11-23 00:25 | XR ---
EXAMINATION TYPE: XR hand complete LT DATE OF EXAM: 11/23/2019 COMPARISON: NONE HISTORY: Swelling TECHNIQUE: 3 views FINDINGS: There is significant soft tissue swelling on the dorsum of the hand and wrist. I see no fra cture nor dislocation. Metacarpals are intact. There is a linear 10 mm metallic foreign body projecte d between the proximal first and second metacarpals. This could be a broken needle. I see no focal ritu ne destruction. IMPRESSION: Soft tissue swelling. No fracture. No sign of osteomyelitis. Broken needle foreign body.
[2019-11-23] MEDS: SODIUM CHLORIDE 0.9% 500 ML 500 ML IV SCH (00:48)
[2019-11-23] MEDS ORDERED: DIPH,PERTUS(ACELL)TETVAC-LF 0.5 ML VIAL IM ONE (01:20)
--- NOTE | 2019-11-23 01:35 | ED ---
Skin/Abscess/FB HPI - General Chief complaint: Skin/Abscess/Foreign Body Stated complaint: LT hand injury Time Seen by Provider: 11/22/19 23:09 Source: patient Mode of arrival: ambulatory Limitations: no limitations - History of Present Illness Initial comments: Leyla is a 34-year-old female with history of IV drug abuse who presents to ER today for evaluation of infection in her left hand. Patient reports that approximately a week ago she injected meth into her left hand, since then she's developed redness swelling and pain. Today the pain became unbearable she was concerned about the infection so she decided come the ER for evaluation. - Related Data Home Medications Medication Instructions Recorded Confirmed Ibuprofen [Motrin] 600 mg PO Q8HR PRN 12/11/17 12/11/17 Allergies Allergy/AdvReac Type Severity Reaction Status Date / Time tramadol Allergy Rapid Verified 11/22/19 23:03 Heart Rate Review of Systems ROS Statement: Those systems with pertinent positive or pertinent negative responses have been documented in the HPI. ROS Other: All systems not noted in ROS Statement are negative. Past Medical History Past Medical History: Asthma, Fibromyalgia, Pneumonia, Seizure Disorder Additional Past Medical History / Comment(s): chronic back pain, asthma as child, pne age 1, past uti-ecoli, seizure x 1 few years ago pt stated "they thought it may be due to dehydration", anxiety History of Any Multi-Drug Resistant Organisms: MRSA Date of last positivie culture/infection: 2010/ unk infection rt hand MDRO Source:: rt hand Past Surgical History: Orthopedic Surgery Additional Past Surgical History / Comment(s): rt hand surgery d/t infection Past Anesthesia/Blood Transfusion Reactions: No Reported Reaction Past Psychological History: Anxiety, Panic Disorder Smoking Status: Current every day smoker Past Alcohol Use History: None Reported Past Drug Use History: Heroin, IV Drug Use, Marijuana - Past Family History Mother Family Medical History: CVA/TIA, Hypertension Additional Family Medical History / Comment(s): loop recorder /ep study Father Family Medical History: Hypertension Additional Family Medical History / Comment(s): aaa(sx) General Exam - General Exam Comments Initial Comments: Physical Exam GENERAL: Patient is well-developed and well-nourished. Patient is nontoxic and well- hydrated and is in no distress. HENT: Normocephalic, Atraumatic. EYES: PERRL, EOMI PULMONARY: Unlabored respirations. No audible rales rhonchi or wheezing was noted. CARDIOVASCULAR: Tachycardic, regular ABDOMEN: Soft and nontender with normal bowel sounds. SKIN: There is erythema of the dorsum of the left hand to the base of the fingers and erythema to the wrist, there is fluctuance and obvious abscess formation : Deferred NEUROLOGIC: Patient is alert and oriented x3. Moving all extremities spontaneously MUSCULOSKELETAL: Full flexion of the fingers is limited by pain in the dorsum of the hand, however there is no evidence of flexor tenosynovitis PSYCHIATRIC: Normal psychiatric evaluation. Limitations: no limitations Course Vital Signs 11/22/19 11/23/19 11/23/19 22:59 01:00 01:48 Temperature 99.9 F H 98.9 F Pulse Rate 122 H 103 H 109 H Respiratory 18 22 20 Rate Blood Pressure 131/77 121/83 119/80 O2 Sat by Pulse 100 98 98 Oximetry Medical Decision Making - Medical Decision Making Patient was seen and evaluated immediately upon arrival the emergency department patient was noted to be tachycardic, hyperpyrexic an obvious infection in her hand Sepsis workup was initiated Vancomycin and Kefzol were ordered for antibiotics X-rays ordered to evaluate for any free air or foreign body, x-ray did confirm a foreign body concerning for needle in the hand Patient care was discussed with [facility] for [facility] who recommends transfer as they don't have hand surgery available Patient care was discussed with orthopedics at [facility] Dr. Rousseau who accepts the transfer Patient care was discussed with ER physician Dr. Calderon at [facility] who accepts the transfer as well She was updated on plan and is agreeable Tetanus was updated prior to patient being transferred - Lab Data Result diagrams: 11/22/19 23:22 11/22/19 23:22 Lab Results 11/22/19 11/22/19 11/22/19 Range/Units 23:22 23:22 23:22 WBC 16.6 H (3.8-10.6) k/uL RBC 4.58 (3.80-5.40) m/uL Hgb 13.6 (11.4-16.0) gm/dL Hct 41.7 (34.0-46.0) % MCV 91.1 (80.0-100.0) fL MCH 29.6 (25.0-35.0) pg MCHC 32.5 (31.0-37.0) g/dL RDW 12.6 (11.5-15.5) % Plt Count 389 (150-450) k/uL Neutrophils % 87 % Lymphocytes % 8 % Monocytes % 3 % Eosinophils % 1 % Basophils % 0 % Neutrophils # 14.5 H (1.3-7.7) k/uL Lymphocytes # 1.3 (1.0-4.8) k/uL Monocytes # 0.6 (0-1.0) k/uL Eosinophils # 0.1 (0-0.7) k/uL Basophils # 0.1 (0-0.2) k/uL PT 9.6 (9.0-12.0) sec INR 0.9 (<1.2) APTT 23.5 (22.0-30.0) sec Sodium 138 (137-145) mmol/L Potassium 4.1 (3.5-5.1) mmol/L Chloride 102 (98-107) mmol/L Carbon Dioxide 26 (22-30) mmol/L Anion Gap 10 mmol/L BUN 11 (7-17) mg/dL Creatinine 0.60 (0.52-1.04) mg/dL Est GFR (CKD-EPI)AfAm >90 (>60 ml/min/1.73 sqM) Est GFR (CKD-EPI)NonAf >90 (>60 ml/min/1.73 sqM) Glucose 132 H (74-99) mg/dL Plasma Lactic Acid Av (0.7-2.0) mmol/L Calcium 9.1 (8.4-10.2) mg/dL Total Bilirubin 0.4 (0.2-1.3) mg/dL AST 29 (14-36) U/L ALT 32 (4-34) U/L Alkaline Phosphatase 99 (38-126) U/L Total Protein 8.3 H (6.3-8.2) g/dL Albumin 4.3 (3.5-5.0) g/dL Urine Color Urine Appearance (Clear) Urine pH (5.0-8.0) Ur Specific [place] (1.001-1.035) Urine Protein (Negative) Urine Glucose (UA) (Negative) Urine Ketones (Negative) Urine Blood (Negative) Urine Nitrite (Negative) Urine Bilirubin (Negative) Urine Urobilinogen (<2.0) mg/dL Ur Leukocyte Esterase (Negative) Urine RBC (0-5) /hpf Urine WBC (0-5) /hpf Ur Squamous Epith Cells (0-4) /hpf Urine Mucus (None) /hpf 11/22/19 11/22/19 Range/Units 23:22 23:35 WBC (3.8-10.6) k/uL RBC (3.80-5.40) m/uL Hgb (11.4-16.0) gm/dL Hct (34.0-46.0) % MCV (80.0-100.0) fL MCH (25.0-35.0) pg MCHC (31.0-37.0) g/dL RDW (11.5-15.5) % Plt Count (150-450) k/uL Neutrophils % % Lymphocytes % % Monocytes % % Eosinophils % % Basophils % % Neutrophils # (1.3-7.7) k/uL Lymphocytes # (1.0-4.8) k/uL Monocytes # (0-1.0) k/uL Eosinophils # (0-0.7) k/uL Basophils # (0-0.2) k/uL PT (9.0-12.0) sec INR (<1.2) APTT (22.0-30.0) sec Sodium (137-145) mmol/L Potassium (3.5-5.1) mmol/L Chloride (98-107) mmol/L Carbon Dioxide (22-30) mmol/L Anion Gap mmol/L BUN (7-17) mg/dL Creatinine (0.52-1.04) mg/dL Est GFR (CKD-EPI)AfAm (>60 ml/min/1.73 sqM) Est GFR (CKD-EPI)NonAf (>60 ml/min/1.73 sqM) Glucose (74-99) mg/dL Plasma Lactic Acid Av 1.5 (0.7-2.0) mmol/L Calcium (8.4-10.2) mg/dL Total Bilirubin (0.2-1.3) mg/dL AST (14-36) U/L ALT (4-34) U/L Alkaline Phosphatase (38-126) U/L Total Protein (6.3-8.2) g/dL Albumin (3.5-5.0) g/dL Urine Color Yellow Urine Appearance Clear (Clear) Urine pH 6.0 (5.0-8.0) Ur Specific [place] 1.027 (1.001-1.035) Urine Protein Trace H (Negative) Urine Glucose (UA) Negative (Negative) Urine Ketones Negative (Negative) Urine Blood Negative (Negative) Urine Nitrite Negative (Negative) Urine Bilirubin Negative (Negative) Urine Urobilinogen <2.0 (<2.0) mg/dL Ur Leukocyte Esterase Trace H (Negative) Urine RBC 6 H (0-5) /hpf Urine WBC 5 (0-5) /hpf Ur Squamous Epith Cells 1 (0-4) /hpf Urine Mucus Few H (None) /hpf - EKG Data -: EKG Interpreted by Me EKG Comments: EKG was obtained due to tachycardia, EKG was obtained at 18 a.m., rate is 108 rh ythm is sinus tachycardia, there is normal axis, normal intervals, OH 116, QRS 88, QTC 447 there are no acute ST elevations or depressions no evidence of acute ischemia or infarction. Disposition Clinical Impression: Foreign body hand-infection, Abscess of hand, left Disposition: OTHER INSTITUTION NOT DEFINED Condition: Stable Is patient prescribed a controlled substance at d/c from ED?: No Referrals: None,Stated [Primary Care Provider] - 1-2 days - Out of Hospital Transfer - Req. Specs Out of Hospital Transfer - Requested Specifics: Other [facility] Center ([facility])
[2019-11-23 01:51] VITALS: BP 119/80; PULSE 109; RESP 20; TEMP 98.9
== END 2019-11-23 01:48 | disposition other institution (70) ==
LOC: EC 22:40
DX: L02.512 Cutaneous abscess of left hand (principal); M79.7 Fibromyalgia; G89.29 Other chronic pain; M54.9 Dorsalgia, unspecified; F12.10 Cannabis abuse, uncomplicated; F11.10 Opioid abuse, uncomplicated; F15.10 Other stimulant abuse, uncomplicated; Z23 Encounter for immunization; R00.0 Tachycardia, unspecified; M79.5 Residual foreign body in soft tissue; F17.200 Nicotine dependence, unspecified, uncomplicated; Z88.6 Allergy status to analgesic agent; Z86.14 Personal history of Methicillin resistant Staphylococcus aureus infection
CPT/HCPCS: 36415; 93005; 80053; 83605; 85025; 85610; 85730; 81001; 87040; 73130; 90715; 99284; 96365; 90471; 96367; J3370; J0690

== ENCOUNTER 2020-08-28 07:47 | Emergency (ER) | payer OTHER ==
--- NOTE | 2020-08-28 08:31 | ED ---
General Adult HPI - General Chief complaint: Overdose Stated complaint: Overdose Time Seen by Provider: 08/28/20 07:50 Source: EMS, RN notes reviewed Mode of arrival: EMS Limitations: no limitations - History of Present Illness Initial comments: 35-year-old female with a past medical history of asthma, fibromyalgia, polysubstance abuse presents to the emergency room for accidental heroin overdose. Patient reports that she has not done heroin in a long time but her friend gave her some and she smoked it. Patient reports that she accidentally overdosed. Her mother gave her Narcan. Patient denies any suicidal intentions. States she is upset with herself for doing heroin again if she had not done and a long time.Patient has no other complaints at this time including shortness of breath, chest pain, abdominal pain, nausea or vomiting, headache, or visual changes. - Related Data Home Medications Medication Instructions Recorded Confirmed No Known Home Medications 08/28/20 08/28/20 Allergies Allergy/AdvReac Type Severity Reaction Status Date / Time tramadol Allergy Rapid Verified 08/28/20 08:27 Heart Rate Review of Systems ROS Statement: Those systems with pertinent positive or pertinent negative responses have been documented in the HPI. ROS Other: All systems not noted in ROS Statement are negative. Past Medical History Past Medical History: Asthma, Fibromyalgia, Pneumonia, Seizure Disorder Additional Past Medical History / Comment(s): chronic back pain, asthma as child, pne age 1, past uti-ecoli, seizure x 1 few years ago pt stated "they thought it may be due to dehydration", anxiety History of Any Multi-Drug Resistant Organisms: MRSA Date of last positivie culture/infection: 2010/ unk infection rt hand MDRO Source:: rt hand Past Surgical History: Orthopedic Surgery Additional Past Surgical History / Comment(s): rt hand surgery d/t infection Past Anesthesia/Blood Transfusion Reactions: No Reported Reaction Past Psychological History: Anxiety, Panic Disorder Smoking Status: Current every day smoker Past Alcohol Use History: None Reported Past Drug Use History: Heroin, IV Drug Use, Marijuana, Methamphetamine - Past Family History Mother Family Medical History: CVA/TIA, Hypertension Additional Family Medical History / Comment(s): loop recorder /ep study Father Family Medical History: Hypertension Additional Family Medical History / Comment(s): aaa(sx) General Exam Limitations: no limitations General appearance: alert, in no apparent distress, other (Tearful) Head exam: Present: atraumatic, normocephalic, normal inspection Eye exam: Present: normal appearance, PERRL, EOMI. Absent: scleral icterus, conjunctival injection, periorbital swelling ENT exam: Present: normal exam Neck exam: Present: normal inspection, full ROM. Absent: tenderness, m eningismus, lymphadenopathy Respiratory exam: Present: normal lung sounds bilaterally. Absent: respiratory distress, wheezes, rales, rhonchi, stridor Cardiovascular Exam: Present: regular rate, normal rhythm, normal heart sounds. Absent: systolic murmur, diastolic murmur, rubs, gallop, clicks GI/Abdominal exam: Present: soft, normal bowel sounds. Absent: distended, tenderness, guarding, rebound, rigid Course Vital Signs 08/28/20 08/28/20 07:54 08:59 Temperature 98.6 F 97.8 F Pulse Rate 112 H 99 Respiratory 18 12 Rate Blood Pressure 152/96 124/86 O2 Sat by Pulse 96 97 Oximetry Medical Decision Making - Medical Decision Making Vitals are stable. Patient is well-appearing. Patient was monitored in the emergency room for an hour and a half and did not have any recurrent symptoms. Patient can be discharged home to follow up with primary care. Will return here for any worsening symptoms. Disposition Clinical Impression: Accidental heroin overdose Disposition: HOME SELF-CARE Condition: Good Instructions (If sedation given, give patient instructions): Adult Overdose (E D) Additional Instructions: Please follow up with primary care in 1-2 days. Return to the emergency room for any worsening symptoms. Is patient prescribed a controlled substance at d/c from ED?: No Referrals: Min Bland MD [REFERRING] - 1-2 days Time of Disposition: 09:15
[2020-08-28] MEDS ORDERED: ONDANSETRON 4 MG/2 ML VIAL IVP STA (09:21)
[2020-08-28] MEDS ORDERED: ONDANSETRON ODT 4 MG TAB PO STA (09:30)
[2020-08-28 10:45] VITALS: BP 127/84; PULSE 100; RESP 18; TEMP 97.5
== END 2020-08-28 10:45 | disposition home or self-care (01) ==
LOC: EC 07:47
DX: T40.1X1A Poisoning by heroin, accidental (unintentional), initial encounter (principal); J45.909 Unspecified asthma, uncomplicated; M79.7 Fibromyalgia; G40.909 Epilepsy, unspecified, not intractable, without status epilepticus; F41.0 Panic disorder [episodic paroxysmal anxiety]; F17.200 Nicotine dependence, unspecified, uncomplicated; F12.90 Cannabis use, unspecified, uncomplicated; F15.90 Other stimulant use, unspecified, uncomplicated
CPT/HCPCS: 99284

== ENCOUNTER 2021-01-28 00:47 | Emergency (ER) | payer OTHER ==
[2021-01-28 00:58] VITALS: BP 137/94; PULSE 95; RESP 20; TEMP 98.7
--- NOTE | 2021-01-28 00:59 | ED ---
Overdose HPI - General Stated Complaint: Overdose Time Seen by Provider: 01/28/21 00:49 Source: patient, EMS Mode of arrival: EMS - Related Data Home Medications Medication Instructions Recorded Confirmed No Known Home Medications 08/28/20 08/28/20 Allergies Allergy/AdvReac Type Severity Reaction Status Date / Time tramadol Allergy Rapid Verified 01/28/21 00:58 Heart Rate Review of Systems ROS Statement: Those systems with pertinent positive or pertinent negative responses have been documented in the HPI. ROS Other: All systems not noted in ROS Statement are negative. Past Medical History Past Medical History: Asthma, Fibromyalgia, Pneumonia, Seizure Disorder Additional Past Medical History / Comment(s): chronic back pain, asthma as child, pne age 1, past uti-ecoli, seizure x 1 few years ago pt stated "they thought it may be due to dehydration", anxiety History of Any Multi-Drug Resistant Organisms: MRSA Date of last positivie culture/infection: 2010/ unk infection rt hand MDRO Source:: rt hand Past Surgical History: Orthopedic Surgery Additional Past Surgical History / Comment(s): rt hand surgery d/t infection Past Anesthesia/Blood Transfusion Reactions: No Reported Reaction Past Psychological History: Anxiety, Panic Disorder Smoking Status: Current every day smoker Past Alcohol Use History: None Reported Past Drug Use History: Heroin, IV Drug Use, Marijuana, Methamphetamine - Past Family History Mother Family Medical History: CVA/TIA, Hypertension Additional Family Medical History / Comment(s): loop recorder /ep study Father Family Medical History: Hypertension Additional Family Medical History / Comment(s): aaa(sx) Course Vital Signs 01/28/21 00:53 Temperature 98.7 F Pulse Rate 95 Respiratory 20 Rate Blood Pressure 137/94 O2 Sat by Pulse 100 Oximetry Disposition Clinical Impression: IV drug abuse, Opioid overdose Disposition: HOME SELF-CARE Condition: Good Instructions (If sedation given, give patient instructions): Adult Overdose (ED) Is patient prescribed a controlled substance at d/c from ED?: No Referrals: None,Stated [Primary Care Provider] - 1-2 days
== END 2021-01-28 01:17 | disposition home or self-care (01) ==
LOC: EC 00:47
DX: T40.1X1A Poisoning by heroin, accidental (unintentional), initial encounter (principal); J45.909 Unspecified asthma, uncomplicated; F41.9 Anxiety disorder, unspecified; F17.200 Nicotine dependence, unspecified, uncomplicated; F12.90 Cannabis use, unspecified, uncomplicated; Z88.1 Allergy status to other antibiotic agents
CPT/HCPCS: 99284

== ENCOUNTER 2022-03-19 21:48 | Inpatient (IN) | payer OTHER ==
[2022-03-19] MEDS ORDERED: ACETAMINOPHEN TAB 500 MG TAB PO STA (23:29)
[2022-03-19] MEDS ORDERED: KETOROLAC 15 MG/ML 1 ML VIAL IVP STA (23:29)
--- NOTE | 2022-03-19 23:29 | ED ---
Fever HPI - General Chief Complaint: Chest Pain Stated Complaint: Weakness, vomiting Time Seen by Provider: 03/19/22 23:27 Source: patient, RN notes reviewed, old records reviewed Mode of arrival: ambulatory Limitations: no limitations - History of Present Illness Initial Comments: This is a 36-year-old female DF for evaluation. Patient Dese for evaluation regards to severe shortness of breath weakness elevated heart rate fever not feeling well bodyaches body pains. Patient does have history of asthma and drug abuse both IV and oral MD Complaint: fever, malaise, weakness -: hour(s) Temperature Source: subjective Context: sick contacts Associated Symptoms: chills, myalgias, cough, shortness of breath, abdominal pain, nausea Treatments Prior to Arrival: none - Related Data Home Medications Medication Instructions Recorded Confirmed No Known Home Medications 08/28/20 08/28/20 Allergies Allergy/AdvReac Type Severity Reaction Status Date / Time tramadol Allergy Rapid Verified 03/19/22 22:29 Heart Rate Review of Systems ROS Statement: Those systems with pertinent positive or pertinent negative responses have been documented in the HPI. ROS Other: All systems not noted in ROS Statement are negative. Past Medical History Past Medical History: Asthma, Fibromyalgia, Pneumonia, Seizure Disorder Additional Past Medical History / Comment(s): chronic back pain, asthma as child, pne age 1, past uti-ecoli, seizure x 1 few years ago pt stated "they thought it may be due to dehydration", anxiety History of Any Multi-Drug Resistant Organisms: MRSA Date of last positivie culture/infection: 2010/ unk infection rt hand MDRO Source:: rt hand Past Surgical History: Orthopedic Surgery Additional Past Surgical History / Comment(s): rt hand surgery d/t infection Past Anesthesia/Blood Transfusion Reactions: No Reported Reaction Past Psychological History: Anxiety, Panic Disorder Smoking Status: Former smoker, Vaper Past Alcohol Use History: Occasional Past Drug Use History: Heroin, IV Drug Use, Marijuana, Methamphetamine - Past Family History Mother Family Medical History: CVA/TIA, Hypertension Additional Family Medical History / Comment(s): loop recorder /ep study Father Family Medical History: Hypertension Additional Family Medical History / Comment(s): aaa(sx) General Exam Limitations: no limitations General appearance: anxious Head exam: Present: atraumatic, normocephalic, normal inspection Eye exam: Present: normal appearance, PERRL, EOMI. Absent: scleral icterus, c onjunctival injection, periorbital swelling ENT exam: Present: normal exam, mucous membranes moist Neck exam: Present: normal inspection. Absent: tenderness, meningismus, lymphadenopathy Respiratory exam: Present: normal lung sounds bilaterally. Absent: respiratory distress, wheezes, rales, rhonchi, stridor Cardiovascular Exam: Present: regular rate, normal rhythm, normal heart sounds. Absent: systolic murmur, diastolic murmur, rubs, gallop, clicks GI/Abdominal exam: Present: soft, normal bowel sounds. Absent: distended, tenderness, guarding, rebound, rigid Extremities exam: Present: normal inspection, full ROM, normal capillary refill. Absent: tenderness, pedal edema, joint swelling, calf tenderness Back exam: Present: normal inspection Neurological exam: Present: alert, oriented X3, CN II-XII intact Psychiatric exam: Present: normal affect, normal mood Skin exam: Present: warm, dry, intact, normal color. Absent: rash Course Vital Signs 03/19/22 03/20/22 22:23 00:25 Temperature 100.8 F H 103 F H Pulse Rate 131 H 105 H Respiratory 18 20 Rate Blood Pressure 121/75 126/80 O2 Sat by Pulse 98 99 Oximetry - Reevaluation(s) Reevaluation #1: 03/20/22 00:58 Medical record is reviewed Reevaluation #2: 03/20/22 00:58 Patient still with elevated heart rate elevated temperature Reevaluation #3: 03/20/22 00:58 Patient informed results questions are answered Reevaluation #4: 03/20/22 00:58 Differential Fever: Pneumonia, viral URI, endocarditis, myocarditis, pericarditis, otitis, sinusitis, peritonsillar Abscess, retropharyngeal Abscess, epiglottitis, peritonitis, appendicitis, Linda cystitis, diverticulitis, hepatitis, colitis, UTI, PID, TOA, pyelonephritis, prostatitis, epididymitis, meningitis, encephalitis, pulmonary embolism, CVA, thyroid storm, pancreatitis, adrenal crisis, cavernous sinus thrombosis, this is not meant to be an all-inclusive list. Reevaluation #5: 03/20/22 00:58 Was pt. sent in by a medical professional or institution? @ -no Did you speak to anyone other than the patient for history? @ -no Did you review nursing and triage notes? @ -agree Were old charts reviewed? @ -no Differential Diagnosis? @ -fever, prior EKG interpreted by me (3pts min.)? @ -yes X-rays interpreted by me (1pt min.)? @ -yes CT interpreted by me (1pt min.)? @ -[none] U/S interpreted by me (1pt. min.)? @ -[none] What testing was considered but not performed? (CT, X-rays, U/S, labs)? Why? @ no What meds were considered but not given? Why? @ -[none] Did you discuss the management of the patient with other professionals? @ -no Did you reconcile home meds? @ -[none] Was smoking cessation discussed for >3mins.? @ -[none] Was critical care preformed (if so, how long)? @ -[none] Were there social determinants of health that impacted care today? How? (Homelessness, low income, unemployed, alcoholism, drug addiction, transportation, low edu. Level, literacy, decrease access to med. care, custodial, rehab)? @ -no Was there de-escalation of care discussed even if they declined? (Discuss DNR or withdrawal of care, Hospice)? @ -no What co-morbidities impacted this encounter? (DM, HTN, Smoking, COPD, CAD, C ancer, CVA, Hep., AIDS, mental health diagnosis, sleep apnea, morbid obesity)? @ -no Was patient admitted / discharged? @ -admit Undiagnosed new problem with uncertain prognosis? @ -[none] Drug Therapy requiring intensive monitoring for toxicity (Heparin, Nitro, Insulin, Cardizem)? @ -[none] Were any procedures done? @ -[none] Diagnosis/symptom? @ -fever Acute, or Chronic, or Acute on Chronic? @ -[default] Uncomplicated (without systemic symptoms) or Complicated (systemic symptoms)? @ -no Side effects of treatment? @ -[none] Exacerbation, Progression, or Severe Exacerbation] @ -[no] Poses a threat to life or bodily function? @ -[no] 03/20/22 03:11 Medical Decision Making - Medical Decision Making 36 female DF for evaluation positive fever bodyaches pains possible strep throat pharyngitis on exam. History of IV drug abuse increasing fever despite treatment. Patient does not feel well will be admitted for rule out bacteremia versus endocarditis - Lab Data Result diagrams: 03/19/22 23:05 03/19/22 23:05 Lab Results 03/19/22 03/19/22 03/19/22 Range/Units 23:05 23:05 23:05 WBC 11.5 H (3.8-10.6) k/uL RBC 4.31 (3.80-5.40) m/uL Hgb 14.1 (11.4-16.0) gm/dL Hct 40.8 (34.0-46.0) % MCV 94.7 (80.0-100.0) fL MCH 32.7 (25.0-35.0) pg MCHC 34.5 (31.0-37.0) g/dL RDW 12.1 (11.5-15.5) % Plt Count 177 (150-450) k/uL MPV 8.1 Neutrophils % 86 % Lymphocytes % 8 % Monocytes % 5 % Eosinophils % 0 % Basophils % 1 % Neutrophils # 9.9 H (1.3-7.7) k/uL Lymphocytes # 0.9 L (1.0-4.8) k/uL Monocytes # 0.5 (0-1.0) k/uL Eosinophils # 0.0 (0-0.7) k/uL Basophils # 0.1 (0-0.2) k/uL PT 10.0 (9.0-12.0) sec INR 0.9 (<1.2) APTT 23.6 (22.0-30.0) sec Sodium 137 (137-145) mmol/L Potassium 4.2 (3.5-5.1) mmol/L Chloride 104 (98-107) mmol/L Carbon Dioxide 24 (22-30) mmol/L Anion Gap 9 mmol/L BUN 11 (7-17) mg/dL Creatinine 0.65 (0.52-1.04) mg/dL Est GFR (CKD-EPI)AfAm >90 (>60 ml/min/1.73 sqM) Est GFR (CKD-EPI)NonAf >90 (>60 ml/min/1.73 sqM) Glucose 106 H (74-99) mg/dL Plasma Lactic Acid Av (0.7-2.0) mmol/L Calcium 8.6 (8.4-10.2) mg/dL Magnesium 1.4 L (1.6-2.3) mg/dL Total Bilirubin 0.5 (0.2-1.3) mg/dL AST 111 H (14-36) U/L ALT 131 H (4-34) U/L Alkaline Phosphatase 108 (38-126) U/L Troponin I (0.000-0.034) ng/mL NT-Pro-B Natriuret Pep pg/mL Total Protein 8.5 H (6.3-8.2) g/dL Albumin 4.6 (3.5-5.0) g/dL Influenza Type A (PCR) (Not Detectd) Influenza Type B (PCR) (Not Detectd) RSV (PCR) (Not Detectd) SARS-CoV-2 (PCR) (Not Detectd) 03/19/22 03/19/22 03/19/22 Range/Units 23:05 23:05 23:05 WBC (3.8-10.6) k/uL RBC (3.80-5.40) m/uL Hgb (11.4-16.0) gm/dL Hct (34.0-46.0) % MCV (80.0-100.0) fL MCH (25.0-35.0) pg MCHC (31.0-37.0) g/dL RDW (11.5-15.5) % Plt Count (150-450) k/uL MPV Neutrophils % % Lymphocytes % % Monocytes % % Eosinophils % % Basophils % % Neutrophils # (1.3-7.7) k/uL Lymphocytes # (1.0-4.8) k/uL Monocytes # (0-1.0) k/uL Eosinophils # (0-0.7) k/uL Basophils # (0-0.2) k/uL PT (9.0-12.0) sec INR (<1.2) APTT (22.0-30.0) sec Sodium (137-145) mmol/L Potassium (3.5-5.1) mmol/L Chloride (98-107) mmol/L Carbon Dioxide (22-30) mmol/L Anion Gap mmol/L BUN (7-17) mg/dL Creatinine (0.52-1.04) mg/dL Est GFR (CKD-EPI)AfAm (>60 ml/min/1.73 sqM) Est GFR (CKD-EPI)NonAf (>60 ml/min/1.73 sqM) Glucose (74-99) mg/dL Plasma Lactic Acid Av 1.1 (0.7-2.0) mmol/L Calcium (8.4-10.2) mg/dL Magnesium (1.6-2.3) mg/dL Total Bilirubin (0.2-1.3) mg/dL AST (14-36) U/L ALT (4-34) U/L Alkaline Phosphatase (38-126) U/L Troponin I <0.012 (0.000-0.034) ng/mL NT-Pro-B Natriuret Pep 57 pg/mL Total Protein (6.3-8.2) g/dL Albumin (3.5-5.0) g/dL Influenza Type A (PCR) (Not Detectd) Influenza Type B (PCR) (Not Detectd) RSV (PCR) (Not Detectd) SARS-CoV-2 (PCR) (Not Detectd) 03/19/22 Range/Units 23:38 WBC (3.8-10.6) k/uL RBC (3.80-5.40) m/uL Hgb (11.4-16.0) gm/dL Hct (34.0-46.0) % MCV (80.0-100.0) fL MCH (25.0-35.0) pg MCHC (31.0-37.0) g/dL RDW (11.5-15.5) % Plt Count (150-450) k/uL MPV Neutrophils % % Lymphocytes % % Monocytes % % Eosinophils % % Basophils % % Neutrophils # (1.3-7.7) k/uL Lymphocytes # (1.0-4.8) k/uL Monocytes # (0-1.0) k/uL Eosinophils # (0-0.7) k/uL Basophils # (0-0.2) k/uL PT (9.0-12.0) sec INR (<1.2) APTT (22.0-30.0) sec Sodium (137-145) mmol/L Potassium (3.5-5.1) mmol/L Chloride (98-107) mmol/L Carbon Dioxide (22-30) mmol/L Anion Gap mmol/L BUN (7-17) mg/dL Creatinine (0.52-1.04) mg/dL Est GFR (CKD-EPI)AfAm (>60 ml/min/1.73 sqM) Est GFR (CKD-EPI)NonAf (>60 ml/min/1.73 sqM) Glucose (74-99) mg/dL Plasma Lactic Acid Av (0.7-2.0) mmol/L Calcium (8.4-10.2) mg/dL Magnesium (1.6-2.3) mg/dL Total Bilirubin (0.2-1.3) mg/dL AST (14-36) U/L ALT (4-34) U/L Alkaline Phosphatase (38-126) U/L Troponin I (0.000-0.034) ng/mL NT-Pro-B Natriuret Pep pg/mL Total Protein (6.3-8.2) g/dL Albumin (3.5-5.0) g/dL Influenza Type A (PCR) Not Detected (Not Detectd) Influenza Type B (PCR) Not Detected (Not Detectd) RSV (PCR) Not Detected (Not Detectd) SARS-CoV-2 (PCR) Not Detected (Not Detectd) - EKG Data -: EKG Interpreted by Me (EKG shows sinus tachycardia 125 VT 1:30 QRS 75 QTC 3 90) - Radiology Data Radiology results: report reviewed (Chest x-ray negative for acute disease), image reviewed Disposition Clinical Impression: IV drug abuse, Fever, Pharyngitis Disposition: ADMITTED IP TO THIS HOSP Condition: Good Is patient prescribed a controlled substance at d/c from ED?: No Time of Disposition: 03:15
[2022-03-19 23:35] LABS: Basophils # (A) 0.1 k/uL (0-0.2); Basophils % (A) 1 %; Eosinophils % (A) 0 %; HCT 40.8 % (34.0-46.0); HGB 14.1 gm/dL (11.4-16.0); Lymphocytes # (A) 0.9 k/uL (1.0-4.8); Lymphocytes % (A) 8 %; MCH 32.7 pg (25.0-35.0); MCHC 34.5 g/dL (31.0-37.0); MCV 94.7 fL (80.0-100.0); Mean Platelet Volume 8.1; Monocytes # (A) 0.5 k/uL (0-1.0); Monocytes % (A) 5 %; Neutrophils # (A) 9.9 k/uL (1.3-7.7); Neutrophils % (A) 86 %; Platelet Count 177 k/uL (150-450); RBC 4.31 m/uL (3.80-5.40); RDW 12.1 % (11.5-15.5); WBC 11.5 k/uL (3.8-10.6)
--- NOTE | 2022-03-19 23:36 | XR ---
EXAMINATION TYPE: XR chest 2V DATE OF EXAM: 03/19/2022 COMPARISON: 02/24/2015 HISTORY: Chest pain TECHNIQUE: 2 views FINDINGS: Heart and mediastinum are normal. Lungs are clear. Diaphragm is normal. Bony thorax is inta ct. IMPRESSION: Normal chest. No change.
[2022-03-19 23:40] LABS: INR 0.9 (<1.2); Partial Thromboplastin Time 23.6 sec (22.0-30.0)
[2022-03-19 23:49] LABS: ALT 131 U/L (4-34); AST 111 U/L (14-36); African American GFR (CKD) >90 (>60 ml/min/1.73 sqM); Albumin 4.6 g/dL (3.5-5.0); Alkaline Phosphatase 108 U/L (38-126); Anion Gap 9 mmol/L; Blood Urea Nitrogen 11 mg/dL (7-17); Calcium 8.6 mg/dL (8.4-10.2); Carbon Dioxide 24 mmol/L (22-30); Chloride 104 mmol/L (98-107); Glucose 106 mg/dL (74-99); Magnesium 1.4 mg/dL (1.6-2.3); Non-African American GFR(CKD) >90 (>60 ml/min/1.73 sqM); Potassium 4.2 mmol/L (3.5-5.1); Sodium 137 mmol/L (137-145); Total Bilirubin 0.5 mg/dL (0.2-1.3); Total Protein 8.5 g/dL (6.3-8.2)
[2022-03-20] MEDS ORDERED: IBUPROFEN 800 MG TAB PO STA (00:26)
[2022-03-20] MEDS ORDERED: ACETAMINOPHEN TAB 325 MG TAB PO PRN (01:03)
[2022-03-20] MEDS ORDERED: IBUPROFEN 400 MG TAB PO PRN (01:03)
[2022-03-20] MEDS ORDERED: NALOXONE 0.4 MG/ML 1 ML VIAL IV PRN (01:03)
[2022-03-20] MEDS ORDERED: ONDANSETRON 4 MG/2 ML VIAL IVP PRN (01:03)
[2022-03-20] MEDS ORDERED: PIPERACILLIN-TAZOBACTAM 3.375 GM in SODIUM CHLORIDE 0.9% 100 ML IVPB STA (01:07)
[2022-03-20] MEDS ORDERED: LORazepam 2 MG/ML INJ IV STA (01:07)
[2022-03-20] MEDS ORDERED: DEXAMETHASONE SOD PHOSPHATE 10 MG/ML 1 ML VIAL IVP STA (01:08)
[2022-03-20] MEDS ORDERED: ASPIRIN 325 MG TAB PO STA (04:08)
--- NOTE | 2022-03-20 04:13 | P.HPIM ---
History of Present Illness H&P Date: 03/20/22 The patient is a 36-year-old female with a PMH of polysubstance abuse, and MRSA cellulitis who presents to the emergency room with complaints of sore throat, myalgias, chest discomfort, and shortness of breath. The patient reports that her symptoms started roughly 2-3 days ago with sore throat and fever. She then also noted developing gradually worsening shortness of breath with intermittent sharp and pressure-like chest discomfort, 7 out of 10 in intensity, nonradiating, with no alleviating or exacerbating features, lasting for a few minutes at a time. Reports nausea and vomiting. Denied experiencing cough, abdominal pain, diarrhea. Case was discussed in detail with the ED physician. While in the emergency room, the patient's T-max was 103F, BP 126/80, pulse 105, and SpO2 99% on room air. Laboratory evaluation in the emergency room was remarkable for leukocytosis of 11.5, group A strep PCR positive, troponin less than 0.012, proBNP 57, CRP elevated at 4.0, AST 111, ALT 131, and magnesium 1.4. Chest x-ray was unremarkable. Review of systems: Pertinent positives and negatives as discussed in HPI, a complete review of systems was performed and all other systems are negative. Physical examination: General: non toxic, no distress, appears at stated age, normal weight Derm: no unusual rashes/lesions, warm Head: atraumatic, normocephalic, symmetric Eyes: EOMI, no lid lag, anicteric sclera, pupils equal round reactive to light ENT: Nose and ears atraumatic Neck: No cervical lymphadenopathy, trachea midline, supple Mouth: no lip lesion, mucus membranes moist, tonsillar exudates noted Cardiovascular: S1S2 reg, no murmur, positive dorsalis pedis pulse bilateral, no edema Lungs: CTA bilateral, no rhonchi, no rales, no accessory muscle use Abdominal: soft, nontender to palpation, no guarding Ext: muscle strength 5 out of 5 in all 4 extremities grossly, no gross muscle atrophy, no contractures, Neuro: CN II-XI grossly intact, no gross focal neuro deficits Psych: Alert, oriented, appropriate affect Assessment/plan Sepsis secondary to strep pharyngitis -Start Penicillin V 500 mg PO QID -F/u blood cultures -IV fluids -Antiemetics Chest pain, rule out ACS -Cardiology consulted -Cardiac monitoring -Echocardiogram ordered -Trend troponin -Status post aspirin Hypomagnesemia -Replace and monitor DVT prophylaxis -Heparin subcu The patient is admitted with an anticipated greater than 2 midnight stay for evaluation of sepsis CODE STATUS: Full Code Discussed with: Patient Anticipated discharge date: 2-[address]: Home Past Medical History Past Medical History: Asthma, Fibromyalgia, Pneumonia, Seizure Disorder Additional Past Medical History / Comment(s): chronic back pain, asthma as child, pne age 1, past uti-ecoli, seizure x 1 few years ago pt stated "they thought it may be due to dehydration", anxiety History of Any Multi-Drug Resistant Organisms: MRSA Date of last positivie culture/infection: 2010/ unk infection rt hand MDRO Source:: rt hand Past Surgical History: Orthopedic Surgery Additional Past Surgical History / Comment(s): rt hand surgery d/t infection Past Anesthesia/Blood Transfusion Reactions: No Reported Reaction Past Psychological History: Anxiety, Panic Disorder Smoking Status: Former smoker, Vaper Past Alcohol Use History: Occasional Past Drug Use History: Heroin, IV Drug Use, Marijuana, Methamphetamine - Past Family History Mother Family Medical History: CVA/TIA, Hypertension Additional Family Medical History / Comment(s): loop recorder /ep study Father Family Medical History: Hypertension Additional Family Medical History / Comment(s): aaa(sx) Medications and Allergies Home Medications Medication Instructions Recorded Confirmed Type No Known Home Medications 08/28/20 08/28/20 History Allergies Allergy/AdvReac Type Severity Reaction Status Date / Time tramadol Allergy Rapid Verified 03/19/22 22:29 Heart Rate Physical Exam Vitals: Vital Signs Temp Pulse Resp BP Pulse Ox 03/20/22 04:10 98.9 F 83 12 117/72 99 03/20/22 00:25 103 F H 105 H 20 126/80 99 03/19/22 22:23 100.8 F H 131 H 18 121/75 98 Intake and Output 03/19/22 03/19/22 03/20/22 14:59 22:59 06:59 Other: Weight 70.307 kg Results CBC & Chem 7: 03/19/22 23:05 03/19/22 23:05 Labs: Abnormal Lab Results - Last 24 Hours (Table) 03/19/22 03/19/22 03/20/22 Range/Units 23:05 23:05 01:10 WBC 11.5 H (3.8-10.6) k/uL Neutrophils # 9.9 H (1.3-7.7) k/uL Lymphocytes # 0.9 L (1.0-4.8) k/uL ESR 21 H (0-20) mm/hr Glucose 106 H (74-99) mg/dL Magnesium 1.4 L (1.6-2.3) mg/dL AST 111 H (14-36) U/L ALT 131 H (4-34) U/L C-Reactive Protein (<1.0) mg/dL Total Protein 8.5 H (6.3-8.2) g/dL Group A Strep (PCR) (Not Detectd) 03/20/22 03/20/22 Range/Units 01:10 01:20 WBC (3.8-10.6) k/uL Neutrophils # (1.3-7.7) k/uL Lymphocytes # (1.0-4.8) k/uL ESR (0-20) mm/hr Glucose (74-99) mg/dL Magnesium (1.6-2.3) mg/dL AST (14-36) U/L ALT (4-34) U/L C-Reactive Protein 4.0 H (<1.0) mg/dL Total Protein (6.3-8.2) g/dL Group A Strep (PCR) DETECTED A (Not Detectd)
[2022-03-20] MEDS: SODIUM CHLORIDE 0.9% 1,000 ML IV SCH ×2 (08:15→09:50)
[2022-03-20] MEDS: MAGNESIUM SULFATE-D5W PMX 1 GM in DEXTROSE/WATER 1 100ML.BAG IVPB SCH ×2 (08:15→10:00)
--- NOTE | 2022-03-20 09:43 | CA ---
Transthoracic Echo Report Name: Leyla Villagomez Age: 36 Gender: F : 1985 Exam Date: 03/20/2022 08:16 Exam Location: [facility] Ht (in): 68 Wt (lb): 155 Ordering Physician: Yazan Aiken DO Attending/Referring Phys: [id number], [facility] [employer] Supervisor Gerda Rivera RDCS Procedure CPT: Indications: Endocarditis Cardiac Hx: Technical Quality: Fair Contrast 1: Total Dose (mL): Contrast 2: Total Dose (mL): MEASUREMENTS (Male / Female) Normal Values 2D ECHO LV Diastolic Diameter PLAX 3.5 cm 4.2 - 5.9 / 3.9 - 5.3 cm LV Systolic Diameter PLAX 2.3 cm IVS Diastolic Thickness 1.2 cm 0.6 - 1.0 / 0.6 - 0.9 cm LVPW Diastolic Thickness 1.1 cm 0.6 - 1.0 / 0.6 - 0.9 cm LV Relative Wall Thickness 0.6 RV Internal Dim ED PLAX 2.6 cm LA Volume 28.4 cm??? 18 - 58 / 22 - 52 cm??? M-MODE Aortic Root Diameter MM 2.6 cm LA Systolic Diameter MM 3.3 cm LA Ao Ratio MM 1.3 AV Cusp Separation MM 2.2 cm DOPPLER AV Peak Velocity 117.8 cm/s AV Peak Gradient 5.5 mmHg LVOT Peak Velocity 89.2 cm/s LVOT Peak Gradient 3.2 mmHg MV Area PHT 3.9 cm??? Mitral E Point Velocity 52.8 cm/s Mitral A Point Velocity 57.2 cm/s Mitral E to A Ratio 0.9 MV Deceleration Time 195.9 ms TR Peak Velocity 239.5 cm/s TR Peak Gradient 23.0 mmHg Right Ventricular Systolic Press 28.0 mmHg FINDINGS Left Ventricle Mildly increased septal wall thickness. Mildly increased posterior wall thickness. Normal left ventricular systolic function with no obvious regional wall motion abnormalities. Left ventricular ejection fraction is estimated at 55-60 %. Right Ventricle Normal right ventricular size and function. Right ventricular systolic pressure within normal limits. Right Atrium Normal right atrial size. Left Atrium Normal left atrial size. Questionable patent foramen ovale. Mitral Valve Structurally normal mitral valve. Mild mitral regurgitation. Aortic Valve No aortic valve stenosis or regurgitation. Tricuspid Valve Structurally normal tricuspid valve. Mild tricuspid regurgitation. Pulmonic Valve Trace pulmonic regurgitation. Pericardium No pericardial effusion. Aorta Normal size aortic root and proximal ascending aorta. CONCLUSIONS Normal left ventricular ejection fraction 55-60% Mild increased left ventricular wall thickness Mild mitral regurgitation Mild tricuspid regurgitation Possible patent foramen ovale No pericardial effusion Previewed by: Dr. Dillon Porras DO (Electronically Signed) Final Date: 20 March 2022 09:42
[2022-03-20] MEDS ORDERED: PIPERACILLIN-TAZOBACTAM 3.375 GM in SODIUM CHLORIDE 0.9% 100 ML IVPB SCH (10:00)
--- NOTE | 2022-03-20 11:10 | P.CRDCN ---
History of Present Illness History of present illness: HISTORY OF PRESENT ILLNESS: This is a 36-year-old female with a past medical history significant for endocarditis in 2018, previous IV drug abuse, and nicotine dependence. 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 We have been asked to see the patient in consultation for chest pain. Patient examined at the bedside. patient states she woke up yesterday and had generalized body aches. She states that she felt short of breath and has been coughing for the past week. She reports having a fever of 102 at home. She also reports that her chest was hurting and felt achy. She reports having nausea and vomiting. The patient was tested for RSV, influenza A and cold bed which were all negative. She was found to be positive for group A strep. The patient reports previous history of MRSA and also endocarditis in 2018 which was treated with IV antibiotic therapy. She states she has been clean from IV drugs for over a year. She does report nicotine dependence and currently is. She reports occasional alcohol use. * EKG reveals sinus tachycardia with no signs of acute ischemia * Chest xray: normal chest. No change. * Laboratory data: WBC 11.5. Hemoglobin 14.1. Platelet count 177. Sodium 137. Potassium 4.2. BUN 11. Creatinine 0.65. AST 111. ALT 131. Troponin negative 1. * Current home cardiac medications include: None * Echocardiogram completed revealing ejection fraction 55-60%, mild MR, mild TR, possible PFO, no pericardial effusion REVIEW OF SYSTEMS: At the time of my exam: CONSTITUTIONAL: Denies fever or chills. HEENT: Denies blurred vision, vision changes, or eye pain. Denies hemoptysis CARDIOVASCULAR: Denies chest pain. Denies orthopnea. Denies PND. Denies palpitations RESPIRATORY: Denies shortness of breath. GASTROINTESTINAL: Denies abdominal pain. Denies nausea or vomiting. HEMATOLOGIC: Denies bleeding disorders. GENITOURINARY: Denies any blood in urine. SKIN: Denies pruitis. Denies rash. PHYSICAL EXAM: VITAL SIGNS: Reviewed. GENERAL: Well-developed in no acute distress. HEENT: Head is normocephalic. Pupils are equal, round. Sclerae anicteric. Mucous membranes of the mouth are moist. Neck supple. No JVD or thyromegaly LUNGS: Respirations even and unlabored. Lungs essentially clear to auscultation bilaterally. HEART: Regular rate and rhythm. S1 and S2 heard. ABDOMEN: Soft. Nondistended. Nontender. EXTREMITIES: Normal range of motion. No clubbing or cyanosis. Peripheral pulses intact. No lower extremity edema NEUROLOGIC: Awake and alert. Oriented x 3. ASSESSMENT: Fever, generalized malaise, nausea, vomiting; + Group A Strep Chest pain, atypical, troponin negative x 1 History of infective endocarditis in 2018 History of MRSA History of IV drug abuse Nicotine dependence PLAN: 2-D echo obtained and reviewed Obtain one additional troponin No plans for stress testing at this time. Will consider on an outpatient basis when patient's infectious process resolves Further recommendations pending patient's course Nurse practitioner note has been reviewed by physician. Signing provider agrees with the documented findings, assessment, and plan of care. Past Medical History Past Medical History: Asthma, Fibromyalgia, Pneumonia, Seizure Disorder Additional Past Medical History / Comment(s): chronic back pain, asthma as child, pne age 1, past uti-ecoli, seizure x 1 few years ago pt stated "they t hought it may be due to dehydration", anxiety History of Any Multi-Drug Resistant Organisms: MRSA Date of last positivie culture/infection: 2010/ unk infection rt hand MDRO Source:: rt hand Past Surgical History: Orthopedic Surgery Additional Past Surgical History / Comment(s): rt hand surgery d/t infection Past Anesthesia/Blood Transfusion Reactions: No Reported Reaction Past Psychological History: Anxiety, Panic Disorder Smoking Status: Former smoker, Vaper Past Alcohol Use History: Occasional Past Drug Use History: Heroin, IV Drug Use, Marijuana, Methamphetamine - Past Family History Mother Family Medical History: CVA/TIA, Hypertension Additional Family Medical History / Comment(s): loop recorder /ep study Father Family Medical History: Hypertension Additional Family Medical History / Comment(s): aaa(sx) Medications and Allergies Home Medications Medication Instructions Recorded Confirmed Type No Known Home Medications 08/28/20 03/20/22 History Allergies Allergy/AdvReac Type Severity Reaction Status Date / Time tramadol AdvReac Rapid Verified 03/20/22 08:17 Heart Rate Physical Exam Vitals: Vital Signs Temp Pulse Resp BP Pulse Ox 03/20/22 04:10 98.9 F 83 12 117/72 99 03/20/22 00:25 103 F H 105 H 20 126/80 99 03/19/22 22:23 100.8 F H 131 H 18 121/75 98 Intake and Output 03/19/22 03/20/22 03/20/22 22:59 06:59 14:59 Other: Weight 70.307 kg Results 03/19/22 23:05 03/19/22 23:05 Cardiac Enzymes 03/19/22 03/19/22 03/20/22 Range/Units 23:05 23:05 01:10 AST 111 H (14-36) U/L CK-MB (CK-2) 0.3 (0.0-2.4) ng/mL Troponin I <0.012 (0.000-0.034) ng/mL Coagulation 03/19/22 Range/Units 23:05 PT 10.0 (9.0-12.0) sec APTT 23.6 (22.0-30.0) sec CBC 03/19/22 Range/Units 23:05 WBC 11.5 H (3.8-10.6) k/uL RBC 4.31 (3.80-5.40) m/uL Hgb 14.1 (11.4-16.0) gm/dL Hct 40.8 (34.0-46.0) % Plt Count 177 (150-450) k/uL Comprehensive Metabolic Panel 03/19/22 Range/Units 23:05 Sodium 137 (137-145) mmol/L Potassium 4.2 (3.5-5.1) mmol/L Chloride 104 (98-107) mmol/L Carbon Dioxide 24 (22-30) mmol/L BUN 11 (7-17) mg/dL Creatinine 0.65 (0.52-1.04) mg/dL Glucose 106 H (74-99) mg/dL Calcium 8.6 (8.4-10.2) mg/dL AST 111 H (14-36) U/L ALT 131 H (4-34) U/L Alkaline Phosphatase 108 (38-126) U/L Total Protein 8.5 H (6.3-8.2) g/dL Albumin 4.6 (3.5-5.0) g/dL Current Medications Generic Name Dose Route Start Last Admin Trade Name Freq PRN Reason Stop Dose Admin Acetaminophen 650 mg 03/20/22 01:03 Acetaminophen Tab 325 Mg Tab PO Q6HR PRN Mild Pain or Fever > 100.5 Sodium Chloride 1,000 mls @ 130 mls/hr 03/20/22 01:15 03/20/22 08:15 Saline 0.9% IV 130 mls/hr .Q7H42M GIOVANI Administration Ibuprofen 400 mg 03/20/22 01:03 Ibuprofen 400 Mg Tab PO Q6HR PRN Mild Pain or Fever > 100.5 Naloxone HCl 0.2 mg 03/20/22 01:03 Naloxone 0.4 Mg/Ml 1 Ml Vial IV Q2M PRN Opioid Reversal Ondansetron HCl 4 mg 03/20/22 01:03 Ondansetron 4 Mg/2 Ml Vial IVP Q8HR PRN Nausea And Vomiting Penicillin V Potassium 500 mg 03/20/22 09:00 Penicillin V Potassium 250 Mg Tab PO QID [facility] Protocol Intake and Output 03/19/22 03/20/22 03/20/22 22:59 06:59 14:59 Other: Weight 70.307 kg 03/19/22 23:05 03/19/22 23:05
[2022-03-20] MEDS: PENICILLIN V POTASSIUM 250 MG TAB PO SCH ×4 (12:04→22:55)
[2022-03-20] MEDS ORDERED: MELATONIN 5 MG TABLET PO PRN (23:08)
[2022-03-21 06:38] LABS: Basophils # (A) 0.1 k/uL (0-0.2); Basophils % (A) 1 %; Eosinophils # (A) 0.1 k/uL (0-0.7); Eosinophils % (A) 1 %; HCT 36.9 % (34.0-46.0); HGB 12.4 gm/dL (11.4-16.0); Lymphocytes # (A) 1.8 k/uL (1.0-4.8); Lymphocytes % (A) 15 %; MCH 32.8 pg (25.0-35.0); MCHC 33.7 g/dL (31.0-37.0); MCV 97.4 fL (80.0-100.0); Mean Platelet Volume 8.5; Monocytes # (A) 0.7 k/uL (0-1.0); Monocytes % (A) 6 %; Neutrophils # (A) 9.1 k/uL (1.3-7.7); Neutrophils % (A) 76 %; Platelet Count 184 k/uL (150-450); RBC 3.78 m/uL (3.80-5.40); RDW 12.2 % (11.5-15.5)
[2022-03-21] MEDS: SODIUM CHLORIDE 0.9% 1,000 ML IV SCH ×2 (06:49→09:12)
[2022-03-21 07:08] LABS: ALT 71 U/L (4-34); AST 38 U/L (14-36); African American GFR (CKD) >90 (>60 ml/min/1.73 sqM); Albumin 3.3 g/dL (3.5-5.0); Alkaline Phosphatase 81 U/L (38-126); Anion Gap 5 mmol/L; Blood Urea Nitrogen 11 mg/dL (7-17); Calcium 7.7 mg/dL (8.4-10.2); Carbon Dioxide 24 mmol/L (22-30); Chloride 110 mmol/L (98-107); Globulin 3.3 g/dL; Glucose 96 mg/dL (74-99); Non-African American GFR(CKD) >90 (>60 ml/min/1.73 sqM); Potassium 3.7 mmol/L (3.5-5.1); Sodium 139 mmol/L (137-145); Total Bilirubin 0.3 mg/dL (0.2-1.3); Total Protein 6.6 g/dL (6.3-8.2)
[2022-03-21] MEDS: PENICILLIN V POTASSIUM 250 MG TAB PO SCH ×4 (09:12→20:27)
[2022-03-21] MEDS ORDERED: HYDROcodone/APAP 5-325MG 1 EACH TAB PO PRN (10:28)
[2022-03-21] MEDS ORDERED: KETOROLAC 15 MG/ML 1 ML VIAL IVP STA (10:28)
--- NOTE | 2022-03-21 14:02 | P.PN ---
Subjective Progress Note Date: 03/21/22 The patient is a 36-year-old female with a PMH of polysubstance abuse, and MRSA cellulitis who presents to the emergency room with complaints of sore throat, myalgias, chest discomfort, and shortness of breath. The patient reports that her symptoms started roughly 2-3 days ago with sore throat and fever. She then also noted developing gradually worsening shortness of breath with intermittent sharp and pressure-like chest discomfort, 7 out of 10 in intensity, nonradiating, with no alleviating or exacerbating features, lasting for a few minutes at a time. Reports nausea and vomiting. Denied experiencing cough, abdominal pain, diarrhea. Case was discussed in detail with the ED physician. While in the emergency room, the patient's T-max was 103F, BP 126/80, pulse 105, and SpO2 99% on room air. Laboratory evaluation in the emergency room was remarkable for leukocytosis of 11.5, group A strep PCR positive, troponin less than 0.012, proBNP 57, CRP elevated at 4.0, AST 111, ALT 131, and magnesium 1.4. Chest x-ray was unremarkable. Patient was seen and examined. No acute events overnight. Patient reports a sore throat and painful swallowing. She also reports continued chest pain, sharp and stabbing in nature, worsened with deep inspiration. Physical examination: General: non toxic, no distress, appears at stated age, normal weight Derm: no unusual rashes/lesions, warm Head: atraumatic, normocephalic, symmetric Eyes: EOMI, no lid lag, anicteric sclera ENT: Nose and ears atraumatic Neck: No cervical lymphadenopathy, trachea midline, supple Mouth: no lip lesion, mucus membranes moist, tonsillar exudates noted Cardiovascular: S1S2 reg, no murmur, no edema Lungs: CTA bilateral, no rhonchi, no rales, no accessory muscle use Ext: muscle strength 5 out of 5 in all 4 extremities grossly, no gross muscle atrophy, no contractures, Neuro: no gross focal neuro deficits Psych: Alert, oriented, appropriate affect Sepsis secondary to strep pharyngitis -Start Penicillin V 500 mg PO QID -ESR and CRP -Blood cultures negative at 24H -DC IVF -Antiemetics Elevated BP without the diagnosis of hypertension -Start Lisinopril and HCTZ -Monitor BP and adjust medications if necessary Chest pain, rule out ACS -Cardiology consulted -Cardiac monitoring -Echocardiogram shows EF 55-60%, mild MR, TR and possible patent foramen ovale -ACS ruled out -Obtain D-Dimer Resolved: Hypomagnesemia D-Dimer to rule out PE, low probability. Monitoring BP with new antihypertensive medication. Anticipate DC in 1-2 days. Objective - Vital Signs Vital signs: Vital Signs Temp 98.3 F 03/21/22 12:32 Pulse 60 03/21/22 12:32 Resp 17 03/21/22 12:32 BP 150/99 03/21/22 12:32 Pulse Ox 99 03/21/22 12:32 FiO2 Intake & Output 03/20/22 03/21/22 03/21/22 18:59 06:59 18:59 Intake Total 450 580 Balance 450 580 Weight 70.307 kg Intake: Intake, IV Titration 100 400 Amount Sodium Chloride 0.9% 1, 100 400 000 ml @ 130 mls/hr IV . Q7H42M [facility] Rx#:[id number] Oral 350 180 Other: Voiding Method Toilet Toilet # Voids 4 - Labs CBC & Chem 7: 03/21/22 05:54 03/21/22 05:54 Labs: Abnormal Lab Results - Last 24 Hours (Table) 03/21/22 03/21/22 Range/Units 05:54 05:54 WBC 12.0 H (3.8-10.6) k/uL RBC 3.78 L (3.80-5.40) m/uL Neutrophils # 9.1 H (1.3-7.7) k/uL Chloride 110 H (98-107) mmol/L Calcium 7.7 L (8.4-10.2) mg/dL AST 38 H (14-36) U/L ALT 71 H (4-34) U/L Albumin 3.3 L (3.5-5.0) g/dL Microbiology - Last 24 Hours (Table) 03/20/22 01:25 Blood Culture - Preliminary Blood No Growth after 24 hours 03/20/22 01:36 Blood Culture - Preliminary Blood No Growth after 24 hours
[2022-03-21] MEDS: LISINOPRIL-HCTZ 20-25 MG 1 EACH TAB PO SCH (15:03)
[2022-03-21] MEDS: KETOROLAC 15 MG/ML 1 ML VIAL IVP SCH ×2 (16:56→23:51)
[2022-03-22 08:25] VITALS: BP 106/72; PULSE 81; RESP 14; TEMP 98.4
[2022-03-22] MEDS: PENICILLIN V POTASSIUM 250 MG TAB PO SCH (09:01)
[2022-03-22] MEDS: LISINOPRIL-HCTZ 20-25 MG 1 EACH TAB PO SCH (09:02)
[2022-03-22] MEDS: KETOROLAC 15 MG/ML 1 ML VIAL IVP SCH ×2 (09:02→13:15)
--- NOTE | 2022-03-22 13:32 | P.DS ---
Providers Date of admission: 03/20/22 01:03 Expected date of discharge: 03/22/22 Attending physician: Yue Hein MD Primary care physician: [facility] Course: The patient is a 36-year-old female with a PMH of polysubstance abuse, and MRSA cellulitis who presents to the emergency room with complaints of sore throat, myalgias, chest discomfort, and shortness of breath. The patient reports that her symptoms started roughly 2-3 days ago with sore throat and fever. She then also noted developing gradually worsening shortness of breath with intermittent sharp and pressure-like chest discomfort, 7 out of 10 in intensity, nonradiating, with no alleviating or exacerbating features, lasting for a few minutes at a time. Reports nausea and vomiting. Denied experiencing cough, abdominal pain, diarrhea. Case was discussed in detail with the ED physician. While in the emergency room, the patient's T-max was 103F, BP 126/80, pulse 105, and SpO2 99% on room air. Laboratory evaluation in the emergency room was remarkable for leukocytosis of 11.5, group A strep PCR positive, troponin less than 0.012, proBNP 57, CRP elevated at 4.0, AST 111, ALT 131, and magnesium 1.4. Chest x-ray was unremarkable. Troponins were trended and ACS was ruled out. Echocardiogram shows EF 55-60%, mild MR, TR and possible patent foramen ovale. D-dimer was negative. Cardiology cleared the patient from their perspective. Patient was started on penicillin by mouth for treatment of strep pharyngitis. Blood cultures are negative at 48 hours. Patient was seen and examined. No acute events overnight. Patient reports improvement in her sore throat. She appears comfortable for discharge today. She'll be discharged home with 5 more days of penicillin by mouth. Pertinent studies include chest x-ray. Physical examination: General: non toxic, no distress, appears at stated age, normal weight Derm: no unusual rashes/lesions, warm Head: atraumatic, normocephalic, symmetric Eyes: EOMI, no lid lag, anicteric sclera ENT: Nose and ears atraumatic Neck: No cervical lymphadenopathy, trachea midline, supple Mouth: no lip lesion, mucus membranes moist, tonsillar exudates noted Cardiovascular: S1S2 reg, no murmur, no edema Lungs: CTA bilateral, no rhonchi, no rales, no accessory muscle use Ext: muscle strength 5 out of 5 in all 4 extremities grossly, no gross muscle atrophy, no contractures, Neuro: no gross focal neuro deficits Psych: Alert, oriented, appropriate affect Discharge diagnosis: Sepsis secondary to strep pharyngitis Elevated BP without the diagnosis of hypertension Chest pain, rule out ACS This complex discharge took 35 minutes to complete. Patient Condition at Discharge: Stable Plan - Discharge Summary Discharge Rx Participant: No New Discharge Prescriptions: New HYDROcodone/APAP 5-325MG [Davis 5-325] 1 each PO Q6HR PRN #12 tab PRN Reason: Pain Penicillin V Potassium [Pen Vee K] 500 mg PO QID #20 tab Acetaminophen Tab [Tylenol] 650 mg PO Q6HR PRN tab PRN Reason: Mild Pain Or Fever > 100.5 Lisinopril-Hctz 20-25 mg [Zestoretic 20-25] 1 each PO DAILY #30 tab Discharge Medication List Acetaminophen Tab [Tylenol] 650 mg PO Q6HR PRN tab 03/22/22 [Rx] HYDROcodone/APAP 5-325MG [Davis 5-325] 1 each PO Q6HR PRN #12 tab 03/22/22 [Rx] Lisinopril-Hctz 20-25 mg [Zestoretic 20-25] 1 each PO DAILY #30 tab 03/22/22 [Rx] Penicillin V Potassium [Pen Vee K] 500 mg PO QID #20 tab 03/22/22 [Rx] Follow up Appointment(s)/Referral(s): Dillon Porras DO [STAFF PHYSICIAN] - 1 Week (OFFICE WILL CONTACT YOU WITH APPOINTMENT DATE AND TIME. ) Mira Bolanos [Primary Care Provider] - 03/27/22 2:15 pm Patient Instructions/Handouts: Penicillin V (By mouth), Hydrocodone/Acetaminophen (By mouth), Lisinopril/Hydrochlorothiazide (By mouth), Strep Throat (DC), Sepsis (DC), Chronic Hypertension (DC) Discharge Disposition: HOME SELF-CARE
== END 2022-03-22 13:32 | disposition home or self-care (01) | DRG 872 ==
LOC: EC 21:48 → 4SSUR 03-20 01:03
PROVIDERS: ADMIT Internal Medicine; ATTEND Internal Medicine
DX: A40.0 Sepsis due to streptococcus, group A (principal); J02.0 Streptococcal pharyngitis; F11.10 Opioid abuse, uncomplicated; Z20.822 Contact with and (suspected) exposure to COVID-19; Z71.6 Tobacco abuse counseling; R07.89 Other chest pain; G89.29 Other chronic pain; F41.0 Panic disorder [episodic paroxysmal anxiety]; M54.9 Dorsalgia, unspecified; E83.42 Hypomagnesemia; I08.1 Rheumatic disorders of both mitral and tricuspid valves; G40.909 Epilepsy, unspecified, not intractable, without status epilepticus; F17.290 Nicotine dependence, other tobacco product, uncomplicated; M79.7 Fibromyalgia; J45.909 Unspecified asthma, uncomplicated; Z86.14 Personal history of Methicillin resistant Staphylococcus aureus infection; Z86.79 Personal history of other diseases of the circulatory system; Z88.5 Allergy status to narcotic agent
CPT/HCPCS: 36415; 71046; 80053; 82550; 82553; 83605; 83735; 83880; 84484; 85025; 85379; 85610; 85652; 85730; 86140; 87040; 87636; 87651; 93005; 93306; 96361; 96365; 96366; 96375; 99285

== ENCOUNTER 2023-11-25 10:07 | Emergency (ER) | payer OTHER ==
[2023-11-25 10:15] VITALS: BP 146/100; PULSE 85; RESP 18; TEMP 97.9
--- NOTE | 2023-11-25 10:33 | ED ---
Upper Extremity HPI - General Chief Complaint: Extremity Injury, Upper Stated Complaint: IHS-L thumb lac Time Seen by Provider: 11/25/23 10:31 Source: patient, RN notes reviewed Mode of arrival: ambulatory Limitations: no limitations - History of Present Illness Initial Comments: 38-year-old female presenting to the ER with a chief complaint of thumb injury. 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 She states she was taking apart off of the itching breast and presented to another area. She states a piece of metal accidentally came and cut her left thumb. Bleeding is controlled with compression. She is not on any blood thinners. Tetanus status unknown. Patient denies any limited range of motion, paresthesias or other injuries. - Related Data Previous Rx's Medication Instructions Recorded Acetaminophen Tab [Tylenol] 650 mg PO Q6HR PRN tab 03/22/22 HYDROcodone/APAP 5-325MG [[place] 1 each PO Q6HR PRN #12 tab 03/22/22 5-325] Lisinopril-Hctz 20-25 mg 1 each PO DAILY #30 tab 03/22/22 [Zestoretic 20-25] Penicillin V Potassium [Pen Vee K] 500 mg PO QID #20 tab 03/22/22 Allergies Allergy/AdvReac Type Severity Reaction Status Date / Time tramadol AdvReac Rapid Verified 11/25/23 10:15 Heart Rate Review of Systems ROS Statement: Those systems with pertinent positive or pertinent negative responses have been documented in the HPI. ROS Other: All systems not noted in ROS Statement are negative. Past Medical History Past Medical History: Asthma, Fibromyalgia, Pneumonia, Seizure Disorder Additional Past Medical History / Comment(s): chronic back pain, asthma as child, pne age 1, past uti-ecoli, seizure x 1 few years ago pt stated "they thought it may be due to dehydration", anxiety History of Any Multi-Drug Resistant Organisms: MRSA Date of last positivie culture/infection: 2010/ unk infection rt hand MDRO Source:: rt hand Past Surgical History: Orthopedic Surgery Additional Past Surgical History / Comment(s): rt hand surgery d/t infection Past Anesthesia/Blood Transfusion Reactions: No Reported Reaction Past Psychological History: Anxiety, Panic Disorder Smoking Status: Former smoker, Vaper Past Alcohol Use History: Occasional Past Drug Use History: Heroin, IV Drug Use, Marijuana, Methamphetamine - Past Family History Mother Family Medical History: CVA/TIA, Hypertension Additional Family Medical History / Comment(s): loop recorder /ep study Father Family Medical History: Hypertension Additional Family Medical History / Comment(s): aaa(sx) General Exam Limitations: no limitations General appearance: alert, in no apparent distress Respiratory exam: Present: normal lung sounds bilaterally. Absent: respiratory distress, wheezes, rales, rhonchi, stridor Cardiovascular Exam: Present: regular rate, normal rhythm, normal heart sounds. Absent: systolic murmur, diastolic murmur, rubs, gallop, clicks Extremities exam: Present: normal inspection, full ROM, normal capillary refill, other (2 cm superficial laceration to left thumb. Minimal active bleeding. Wound is not gaping. Patient has full active range of motion. Brisk cap refill. 2+ left radial pulse.). Absent: tenderness, pedal edema, joint swelling, calf tenderness Neurological exam: Present: alert, oriented X3, CN II-XII intact Skin exam: Present: warm, dry, intact, normal color, other (1cm superficial laceration distal second digit. no active bleeding). Absent: rash Course Vital Signs 11/25/23 10:12 Temperature 97.9 F Pulse Rate 85 Respiratory 18 Rate Blood Pressure 146/100 O2 Sat by Pulse 100 Oximetry Procedures - Laceration Laceration #1 Consent Obtained: verbal consent Indication: laceration Site: hand Size (cm): 2 Description: linear Depth: simple, single layer Pre-repair: wound explored, irrigated extensively Type of Sutures: other (dermal glue) Patient Tolerated Procedure: well Laceration #2 Consent Obtained: verbal consent Indication: laceration Site: hand Size (cm): 1 Description: linear Depth: simple, single layer Pre-repair: wound explored, irrigated extensively Type of Sutures: other (dermal glue) Medical Decision Making - Medical Decision Making Was pt. sent in by a medical professional or institution (Dr. PA, SUBCONTRACTS MANAGER, urgent care, hospital, or retirement...) When possible be specific @ -No Did you speak to anyone other than the patient for history (EMS, parent, family, police, friend...)? What history was obtained from this source @ -No Did you review nursing and triage notes (agree or disagree)? Why? @ -I reviewed and agree with nursing and triage notes Were old charts reviewed (outside hosp., previous admission, EMS record, old EKG, old radiological studies, urgent care reports/EKG's, retirement records)? Report findings @ -No old charts were reviewed Differential Diagnosis (chest pain, altered mental status, abdominal pain women, abdominal pain men, vaginal bleeding, weakness, fever, dyspnea, syncope, headache, dizziness, GI bleed, back pain, seizure, CVA, palpatations, mental health, musculoskeletal)? @ -Laceration, abrasion, contusion, avulsion, foreign body this list is not meant to be all-inclusive EKG interpreted by me (3pts min.). @ -None X-rays interpreted by me (1pt min.). @ -Left hand x-ray interpreted by me negative for acute osseous process. There is a soft tissue laceration over the distal second digit. Stable linear 10 mm foreign body within the first and second metacarpal region unchanged from 2019. CT interpreted by me (1pt min.). @ -None done U/S interpreted by me (1pt. min.). @ -None done What testing was considered but not performed or refused? (CT, X-rays, U/S, labs)? Why? @ -None What meds were considered but not given or refused? Why? @ -Patient refused anagelsic medications. Did you discuss the management of the patient with other professionals (professionals i.e. , PA, SUBCONTRACTS MANAGER, lab, RT, psych nurse, psychiatric social worker supervisor, pourer crane ladle, teacher, crime prevention police officer, case management assistant)? Give summary @ -No Was smoking cessation discussed for >3mins.? @ -No Was critical care preformed (if so, how long)? @ -No Were there social determinants of health that impacted care today? How? (Homelessness, low income, unemployed, alcoholism, drug addiction, transportation, low edu. Level, literacy, decrease access to med. care, fci, rehab)? @ -No Was there de-escalation of care discussed even if they declined (Discuss DNR or withdrawal of care, Hospice)? DNR status @ -No What co-morbidities impacted this encounter? (DM, HTN, Smoking, COPD, CAD, Cancer, CVA, ARF, Chemo, Hep., AIDS, mental health diagnosis, sleep apnea, morbid obesity)? @ -None Was patient admitted / discharged? Hospital course, mention meds given and route, prescriptions, significant lab abnormalities, going to OR and other pertinent info. @ -Discharge. 38-year-old female presented to ER with a chief complaint of a laceration. History and physical exam completed. Vitals within normal limits. Exam remarkable for a 2 cm fascial nongaping laceration to first digit. There is a 1 cm none actively bleeding laceration to second distal digit. Patient states this is from yesterday. Left upper extremity neurovascular intact. She has full active range of motion. X-rays obtained negative for acute osseous process. A foreign body noted between second and first metacarpal region. There was no tenderness to this area upon palpation or overlying skin changes. Wounds closed using dermal glue. Tetanus updated. Patient refused analgesic medications. Wound care discussed. Strict return parameters discussed. Patient discharged in stable condition with follow-up to PCP. Patient verbally expressed understanding agreement care plan. Case discussed with the attending, Dr. Guillen. Undiagnosed new problem with uncertain prognosis? @ -No Drug Therapy requiring intensive monitoring for toxicity (Heparin, Nitro, Insulin, Cardizem)? @ -No Were any procedures done? @ -Yes Diagnosis/symptom? @ -Laceration Acute, or Chronic, or Acute on Chronic? @ -Acute Uncomplicated (without systemic symptoms) or Complicated (systemic symptoms)? @ -Uncomplicated Side effects of treatment? @ -No Exacerbation, Progression, or Severe Exacerbation? @ -No Poses a threat to life or bodily function? How? (Chest pain, [place], AR, pneumonia, PE, COPD, DKA, ARF, appy, cholecystitis, CVA, Diverticulitis, Homicidal, Suicidal, threat to staff... and all critical care pts) @ -No - Radiology Data Radiology results: report reviewed, image reviewed Disposition Clinical Impression: Laceration Disposition: HOME SELF-CARE Condition: Stable Instructions (If sedation given, give patient instructions): Skin Adhesive Care (ED) Additional Instructions: Follow-up with PCP. Return to ER for any new or worsening concerns. Is patient prescribed a controlled substance at d/c from ED?: No Referrals: None,Stated [Primary Care Provider] - 1-2 days Forms: Area PCPs Time of Disposition: 11:19
[2023-11-25] MEDS: TOPICAL SKIN ADHESIVE 1 EACH AMP TOPICAL ONE (10:45)
[2023-11-25] MEDS: DIPH,PERTUS(ACELL)TETVAC-LF 0.5 ML VIAL IM ONE (10:45)
--- NOTE | 2023-11-25 11:03 | XR ---
EXAMINATION TYPE: XR hand complete LT DATE OF EXAM: 11/25/2023 10:54 AM INDICATION: Patient age:Female; 38 years old; Reason for study: thumb injury; PHH. COMPARISON: Left hand radiograph 11/23/2019 TECHNIQUE: Frontal, lateral and oblique views of the left hand were obtained. FINDINGS: Normal alignment of the visualized joints. No acute osseous pathology is identified. No e vidence of soft tissue swelling. Soft tissue defect involving the radial aspect of the distal second digit. Stable linear 10 mm metallic foreign body projected between the proximal first and second meta carpals again. IMPRESSION: 1. No acute osseous pathology. 2. Soft tissue laceration involving the distal second digit. 3. Stable linear 10 mm foreign body within the first and second metacarpal region again from 2019.
== END 2023-11-25 11:34 | disposition home or self-care (01) ==
LOC: EC 10:07
CPT/HCPCS: 12002; 90715; 99282